=== PATIENT | male | born 1940 | race Caucasian/White ===

== ENCOUNTER → 2019-03-11 | Day surgery (SDC) | payer MEDICARE, OTHER ==
[2019-03-09 12:07] LABS: BASOPHILS % 0.5 % (0.0-1.0); EOSINOPHILS # (AUTO) 0.3 (0.0-0.4); HEMATOCRIT 37.4 % (38.2-49.6); HEMOGLOBIN 12.3 g/dL (14.0-18.0); LYMPHOCYTES # (AUTO) 1.2 (1.0-3.2); LYMPHOCYTES % 17.9 % (18.0-39.1); MEAN CORPUSCULAR HEMOGLOBIN 30.1 pg (28-32); MEAN CORPUSCULAR HGB CONC 32.9 g/dL (31-35); MEAN CORPUSCULAR VOLUME 91.7 fL (81-99); MONOCYTES # (AUTO) 0.8 (0.2-0.8); MONOCYTES % 12.5 % (4.4-11.3); NEUTROPHILS # (AUTO) 4.2 (2.1-6.9); NEUTROPHILS % 63.8 % (38.7-80.0); PLATELET COUNT 192 x10e3/uL (140-360); RED BLOOD COUNT 4.08 x10e6/uL (4.3-5.7); RED CELL DISTRIBUTION WIDTH 14.2 % (11.7-14.4)
[~2019-03-11] MED LIST: AMIODARONE; AMIODARONE HCL200 MG PO; AMLODIPINE BESY10 MG PO; ASACOL400 MG PO; ASCORBIC ACID500 MG PO; ASPIRIN81 MG PO; ATORVASTATIN CA20 MG PO; AZATHIOPRINE50 MG PO; AZOR; AZOR 10-40 MG1 EACH PO; BUDESONIDE EC3 MG PO; CALCIUM 500+D1 EACH PO; CARVEDILOL12.5 MG PO; CENTRUM COMPLE1 EACH PO; CETIRIZINE HCL10 MG; CLONIDINE1 EAC2 TD; COLESTIPOL HCL1 GM PO; DILTIAZEM HCL60 MG PO; DIOVAN HCT 3201 EACH PO; DRISDOL50000 UNIT PO; FENTANYL CITRATE/PF 100MCG/2 ML INJ ONE; FERROUS SULFAT325 MG PO; FLOMAX0.4 MG; FOLIC ACID1 MG PO; GABAPENTIN100 MG PO; GLUCOSAMINE H1500 MG PO; HYDROXYZINE HCL25 MG PO; IOPAMIDOL 200 MG/ML 20 ML VIAL IT ONE; ISOSORBIDE; LIALDA1.2 GM PO; LIDOCAINE HCL 1% 30ML-PF VIAL ONE; LIDOCAINE HCL 2% LOCAL INJ 5 ML SDV VIAL INJ ONE; LISINOPRIL-HCT1 EACH PO; LOMOTIL TABLET1 EACH PO; LOPERAMIDE PO; LOPERAMIDE2 MG PO; LORAZEPAM0.5 MG PO; MEGESTROL400 MG/10 PO; METOPROLOL TART25 MG PO; METOPROLOL TART50 MG PO; MIDAZOLAM HCL 2 MG/2 ML VIAL ONE; MULTAQ400 MG PO; MULTI-VITAMIN1 EACH; OCTREOTIDE SQ; OMEPRAZOLE40 MG PO; OS-CAL 500+D T1 EACH PO; PEPCID40 MG PO; PHOSPHORUS PO; POT PO; PREDNISONE5 MG PO; PROPOFOL IV EMULSION 10 MG/ML 20 ML VIAL ONE; PROTONIX PO; QUESTRAN PACKET4 GM PO; REGLAN10 MG PO; SIMETHICONE125 MG PO; SIMVASTATIN40 MG PO; SOD PO; SPIRONOLACTONE25 MG PO; SPIRONOLACTONE50 MG PO; TAMSULOSIN; THIAMINE HCL100 MG PO; TRAZODONE HCL50 MG PO; TRIAMCINOLONE ACET 40 MG/ML VIAL ONE; ULTRAM 50MG50 MG PO; VITAMIN E1000 UNI1 PO; XANAX0.5 MG PO; XARELTO20 MG PO; Z.0.PLAVIX75 MG PO; [UNRECOGNIZED DRUG - OTHER]; [UNRECOGNIZED DRUG - OTHER] SQ
--- OUTSIDE RECORDS SUMMARY | 2019-03-11 05:43 | XMS REPORT ---
Author [facility] Address Unknown Phone Unavailable Care Team Providers Care Sergeant Of Officers Name Role Phone Unavailable Unavailable Payers Payer Name Policy Type Policy Number Effective Date Expiration Date Problems This patient has no known problems. Allergies, Adverse Reactions, Alerts Allergy Name Allergy Type Status Severity Reaction(s) Onset Date Inactive Date Treating Clinician Comments codeine DA Active SV 2018-03-12 00:00:00 No Known Drug Intolerances DA Active U 2008-11-07 00:00:00 No Known Contrast Allergies DA Active U 2007-05-25 00:00:00 No Known Drug Allergies DA Active U 2007-05-25 00:00:00 No Known Food Allergies DA Active U 2007-05-25 00:00:00 No Known Other Allergies DA Active U 2007-05-25 00:00:00 Medications This patient has no known medications. Results Test Description Test Time Test Comments Text Results Atomic Results Result Comments - XR CHEST 2 V 2018-12-14 15:42:00 FAX: Oziel Turner [phone] [place]: St: PRE Name: SANTOSH GARCIA [facility] : 1940 Age/S: 78/M [address] Unit #: [id number] Loc: [place] [address] Phys: Oziel Saleh MD Acct: [id number] Dis Date: [place] [facility] [place] #: [phone] Exam Date: 12/14/2018 1521 FAX #: [phone] Reason: CAD EXAMS: CPT CODE: [id number] XR CHEST 2 V 08902 CLINICAL HISTORY: CAD COMPARISON: May 25, 2007 PA and lateral films of the chest demonstrate fecal clips overlying right and l eft hemithorax. Heart size is normal. There is mild tortuosity of thoracic aorta. Lung michele are clear without any evidence of pneumonia or congestive failure. Calcified granuloma at the right lung base as well as at left costophrenic angle are present, unchanged since previous examination. Linear opacity at the left lung base compatible with scarring is present. Regional skeletal structures demonstrate no acute abnormality. IMPRESSION: No evidence of pneumonia or congestive failure is seen. at 9360 Reported and signed by: Randell Silva M.D. CC: Oziel Saleh MD Technologist: RT Liset(R) Trnscrd Date/Time/By: 12/14/2018 (0853) : By: Shania Orig Print D/T: S: 12/14/2018 (4445) PAGE 1 Signed Report PROTHROMBIN TIME 2018-12-14 15:40:00 PROTHROMBIN TIME PATIENT (test code=PTP) 10.9 SECONDS 9.3-12.9 INTERNATIONAL NORMAL RATIO (test code=INR) 1.0 0.8-1.2 TARGET INR BY INDICATION Indication INR1. Prophylaxis of venous thrombosis 2.0 - 3.0 (orthopedic surgery), Prophylaxis of venous thrombosis (other than high-risk surgery), Treatment of Deep Vein Thrombosis/Pulmonary Embolism, Prevention of systemic embolism - Tissue heart valves, Acute Myocardial Infarction (to prevent systemic embolism), Valvular heart disease, Atrial Fibrillation, Bileaflet mechanical valve in aortic position.2. Mechanical prosthetic valves (high risk), 2.5 - 3.5 Presence of Lupus Anticoagulant or Antiphospholipid Antibodies, Prevention of systemic embolism - Acute Myocardial Infarction (to prevent recurrent infarct). BASIC METABOLIC [id number] 15:35:00* Test Item Value Reference Range Comments SODIUM (test code=NA) 140 mEq/L 134-147 POTASSIUM (test code=K) 4.3 mEq/L 3.4-5.0 CHLORIDE (test code=CL) 99 mEq/L 100-108 CARBON DIOXIDE (test code=CO2) 31 mEq/L 21-33 ANION GAP (test code=GAP) 14 0-20 GLUCOSE (test code=GLU) 84 mg/dL 70-110 BLOOD UREA NITROGEN (test code=BUN) 13 mg/dL 7-18 GLOMERULAR FILTRATION RATE (test code=GFR) 93.7 70-80 Units of measure=ml/min/1.73 m2 CREATININE (test code=CREAT) 0.8 mg/dL 0.6-1.3 CALCIUM (test code=CA) 9.2 mg/dL 8.0-10.5 CBC W/AUTO [id number] 15:02:00* Test Item Value Reference Range Comments WHITE BLOOD CELL (test code=WBC) 6.93 x10 3/uL 4.5-11.0 RED BLOOD CELL (test code=RBC) 3.90 x10 6/uL 4.00-5.60 HEMOGLOBIN (test code=HGB) 11.8 g/dL 12.5-16.9 HEMATOCRIT (test code=HCT) 35.7 % 37.5-50.7 MEAN CELL VOLUME (test code=MCV) 91.5 fL 81.0-99.0 MEAN CELL HGB (test code=MCH) 30.3 pg 27.0-33.0 MEAN CELL HGB CONCETRATION (test code=MCHC) 33.1 g/dL 33.0-37.0 RED CELL DISTRIBUTION WIDTH CV (test code=RDW) 14.2 % 11.5-14.5 RED CELL DISTRIBUTION WIDTH SD (test code=RDW-SD) 47.9 fL 37.0-54.0 PLATELET COUNT (test code=PLT) 187 x10 3/uL 150-400 MEAN PLATELET VOLUME (test code=MPV) 9.6 fL 7.0-9.0 NEUTROPHIL % (test code=NT%) 59.1 % 56.0-77.0 IMMATURE GRANULOCYTE % (test code=IG%) 0.3 % 0.0-2.0 LYMPHOCYTE % (test code=LY%) 19.9 % 14.0-32.0 MONOCYTE % (test code=MO%) 14.0 % 4.8-9.0 EOSINOPHIL % (test code=EO%) 6.1 % 0.3-3.7 BASOPHIL % (test code=BA%) 0.6 % 0.0-2.0 NUCLEATED RBC % (test code=NRBC%) 0.0 % 0-0 NEUTROPHIL # (test code=NT#) 4.10 x10 3/uL 2.0-7.6 IMMATURE GRANULOCYTE # (test code=IG#) 0.02 x10 3/uL 0.00-0.03 LYMPHOCYTE # (test code=LY#) 1.38 x10 3/uL 1.0-3.8 MONOCYTE # (test code=MO#) 0.97 x10 3/uL 0.1-0.8 EOSINOPHIL # (test code=EO#) 0.42 x10 3/uL 0.0-0.2 BASOPHIL # (test code=BA#) 0.04 x10 3/uL 0.0-0.2 NUCLEATED RBC # (test code=NRBC#) 0.00 x10 3/uL 0.0-0.1 MANUAL DIFF REQUIRED (test code=MDIFF) NO SURGICAL [id number] 15:54:00 RUN DATE: 03/25/18 [facility] PAGE 1 RUN TIME: 2244 Specimen Inqui ry RUN USER: INTERFACE PATIENT: SANTOSH GARCIA ACCT #: [id number] LOC: [id number] U #: [id number] AGE/SX: 77/M ROOM: [facility] RE03/24/18REG DR: Danielito Najera MD : 41 BED: A DIS: 03/25/18 STATUS: DIS IN TLOC: SPEC #: [id number] RECD: 03/24/18 STATUS: SOU REQ #: [id number] BOO: 03/24/[address] [facility] DR: Danielito Najera ENTERED: 03/24/18 SP TYPE: SURG OTHR DR: Kasie [facility] or Family Physician Brandon Lim MDORDERED: LEVEL 4 G/M, DECALCIFICATION COMMENTS: SOURCE: LEFT KNEE CONDYLE CODES: [id number] - SKELETAL SYSTEM [id number] - CARTIL AGINOUS T IY7424 - LEFT KNEE [id number] - BONE DEGENERATIVE SMOOTH COPIES T O: No Primary [place] [address] [place], [place] [id number] [email or web address] Brandon Lim MD [address] [id number] ICD CODES: 715.9 - PROCEDURES: LEVEL 4 G/M (Incomplete) DECALCIFICATION (Incomplete) TISSUES: BONE,NOS ANATOMIC PATHOLOGY DIAGNOSIS BONE AND CARTILAGE, LEFT KNEE CONDYLE, ARTHROPLASTY: - DEGENERATIVE JOINT DISEASE (OSTEOARTHR ITIS). CLINICAL HISTORY/PRE-OP DIAG Left knee osteoarthritis. CONTINUED ON NEXT PAGE RUN DATE: 03/25/18 [facility] PAGE 2 RUN TIME: 2244 Specimen Inquiry RUN USER: INTERFACE SPEC #: [id number] PATIENT: SANTOSH GARCIA #[id number] (Continued) COMMENTS PERMANENT SECTIONS PREPARED AT: [facility] DEPARTMENT OF PATHOLOGY [address] [place] [address], [place] [address] GROSS DESCRIPTION The case is received in one part, labe led with the patient's name "Santosh Garcia"and accession number "[id number]", accompanied by a requisition slip labeled with thesame patient name and accession number. Received in formalin labeled "left knee condyle" are two dome- shaped pieces of bonemeasuring 5 x 3.5 x 0.9 cm and 5.5 x 3.2 x 1 cm. The artic ular surfaces are yellow-pruitt andsmooth. No areas of eburnation are seen. Section ing reveals a pink-yellow cut surface andcartilage thickness ranging from 0.1 cm to 0.3 cm. Data Center Manager sections are submitted incassettes A1-A2 following de calcification. (codey) MICROSCOPIC Sections show cartilage and bone wit h some degenerative changes of the cartilage whichinclude fibrillation, thinning , and chondrocyte cloning. The underlying bone shows mildreactive changes and a predominantly fatty marrow. No malignancy is seen. Signed SIGNATURE ON FILE Odilia Quiroz. 03/25/18 1554 END OF REPORT
--- NOTE | 2019-03-11 07:05 | NUR ---
SPIRITUAL CARE - Pre-Surgery Assessment: Pt in bed. Pt's at bedside. Pt reported supportive attention from family and friends. Intervention: I provided pastoral presence, hospitality, and sympathetic listening. I acquainted pt with availability of structural steel detailer while hospitalized. Outcome: Pt expressed appreciation for visit. No need for follow up indicated at this time. [facility] Spiritual Care Department O: [phone] Pager: [phone] ([phone] number calling from)
[2019-03-11 09:25] VITALS: BP 135/73
== END | disposition home or self-care (01) ==
LOC: OR 05:30
PROVIDERS: ATTEND Physical Medicine & Rehabilitation Pain Medicine
DX: M47.896 Other spondylosis, lumbar region (principal); M47.897 Other spondylosis, lumbosacral region; I25.10 Atherosclerotic heart disease of native coronary artery without angina pectoris; G89.29 Other chronic pain; I10 Essential (primary) hypertension; I48.91 Unspecified atrial fibrillation; Z01.810 Encounter for preprocedural cardiovascular examination; Z01.812 Encounter for preprocedural laboratory examination; Z79.82 Long term (current) use of aspirin; Z95.5 Presence of coronary angioplasty implant and graft; Z85.46 Personal history of malignant neoplasm of prostate
CPT/HCPCS: 36415; 64493; 64494; 64495; 85025; 93005; J2001 ×2; J2250; J2704; J3010; J3301; Q9967; 77003

== ENCOUNTER → 2019-09-30 | Day surgery (SDC) | payer MEDICARE, OTHER ==
[2019-09-27 13:18] LABS: BASOPHILS % 0.3 % (0.0-1.0); EOSINOPHILS % 0.2 % (0.0-6.0); HEMATOCRIT 37.3 % (38.2-49.6); HEMOGLOBIN 12.1 g/dL (14.0-18.0); LYMPHOCYTES # (AUTO) 1.4 (1.0-3.2); LYMPHOCYTES % 15.3 % (18.0-39.1); MEAN CORPUSCULAR HEMOGLOBIN 28.8 pg (28-32); MEAN CORPUSCULAR HGB CONC 32.4 g/dL (31-35); MEAN CORPUSCULAR VOLUME 88.8 fL (81-99); MONOCYTES # (AUTO) 0.8 (0.2-0.8); MONOCYTES % 8.7 % (4.4-11.3); NEUTROPHILS # (AUTO) 7.1 (2.1-6.9); NEUTROPHILS % 75.1 % (38.7-80.0); PLATELET COUNT 234 x10e3/uL (140-360); RED CELL DISTRIBUTION WIDTH 14.8 % (11.7-14.4)
[~2019-09-30] MED LIST changes: +ALENDRONATE SOD10 MG PO; +DEXAMETHASONE SOD PHOS 10 MG/1 ML VIAL ONE; +ELIQUIS2.5 MG PO; +PROTONIX20 MG PO; -TRIAMCINOLONE ACET 40 MG/ML VIAL ONE
[2019-09-30 08:13] VITALS: BP 132/63
--- NOTE | 2019-09-30 09:31 | Diagnostic Imaging Report ---
OR Fluoroscopy: IMPRESSION: Fluoroscopy service provided in the OR. Interpretation not requested. Signed by: Luis Wheatley MD on 09/30/2019 9:28 AM
--- OUTSIDE RECORDS SUMMARY | 2019-09-30 10:32 | XMS REPORT | Summary of Care ---
Author Author [facility] Organization [facility] Address Unknown Phone Unavailable Encounter HQ Yaa(FIN) [id number] Date(s): 12/07/18 - 12/07/18 [facility] [place] [address] [place] [address] [phone] Discharge Disposition: Home or Self Care Attending Physician: Mehnaz Leyva MD Referring Physician: Mehnaz Leyva MD Vital Signs No data available for this section Problem List Condition Effective Dates Status Health Status Informan t Atrial Active fibrillation(Confirm ed) Crohn Active disease(Confirmed) Hypertension(Confirm Active ed) Pancreatitis(Confirm Resolved ed) Prostate Resolved cancer(Confirmed) Allergies, Adverse Reactions, Alerts No Known Medication Allergies Medications No data available for this section Results No data available for this section Immunizations No data available for this section Procedures Procedure Date Related Diagnosis Body Site Status Gallbladder operation Completed Social History Social History Type Response Substance Abuse IV drug use: No. Sexual Sexually active: No. Jimenez e in Libido: No. Exercise Exercise type: Walking. Employment/School Status: Employed. Alcohol Previous treatment: None. Smoking Status Never smoker; Previous jimenez tment: None; Ready to change: No; Concerns about tobacco use in household: No; Exposure to Tobacco Smoke None; Cigarette Smoking Last 365 Days No; Reg Smoking C essation Counseling No entered on: 12/28/13 Assessment and Plan No data available for this section
--- OUTSIDE RECORDS SUMMARY | 2019-09-30 10:32 | XMS REPORT ---
Author Author [facility] t Organization [facility] Address [address] [place] [address] Phone Unavailable Care Team Providers Care Carbon Brush Maker Name Role Phone Sanket VELASQUEZ Attphys Unavailable Mehnaz Leyva Attphys HematpoRangel turk Attphys Hematpour, Khtere Admphys Payers Payer Name Policy Type Policy Number Effective Date Expiration Date S ource Problems Condition Name Condition Details Condition Category Status Onset Date Resolution Date Last Treatment Date Treating Clinician Comments Source K51.00 - ULCERATIVE (CHRONIC) PANCOLITI K51.00 - ULCERATIVE (CHRONIC) PANCOLITI Active 12/01/2018 [facility] [place] [facility] Diagnosis Active 2018-12-01 00:01:00 2018-12-07 08:37:00 [facility] [place] INCREASED HR INCR EASED HR Active 12/28/2013 [facility] Diagnosis Active 2013-12-28 00:00:00 2013-12-28 13:39:00 [facility] A-FLUTTER/HYPOTENSIVE A-FL UTTER/HYPOTENSIVE Active 12/28/2013 [facility] Diagnosis Active 2013-12-28 00:00:00 2013-12-29 10:49:[address] [facility] [address] Atrial fibrillation (disorder) Atrial fibrillation (disorder) Active Problem 12/09/2018 [facility], [facility] [place] Problem Active 2018-12-09 23:14:55 [facility], [facility] [place] Crohn's disease (disorder) 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 Problem 12/09/2018 [facility], [facility] [place] Problem Active 2018-12-09 23:14:55 [facility], [facility] [place] Hypertensive disorder, systemic arterial (disorder) Hypertensive disorder, systemic arterial (disorder) Active Problem 12/09/2018 [facility], [facility] [place] Problem Active 2018-12-09 23:14:55 [facility], [facility] [place] Pancreatitis (disorder) Panc reatitis (disorder) Resolved Problem 12/09/2018 [facility], [facility] [place] Problem Resolved 2018-12-09 23:14:55 [facility], [facility] [place] Malignant tumor of prostate (disorder) Malignant tumor of prostate (disorder) Resolved Problem 12/09/2018 [facility], [facility] [place] Problem Resolved 2018-12-09 23:14:55 [facility], [facility] [place] ATRIAL FLUTTER ATRI AL FLUTTER Active [facility] Diagnosis Active 2013-12-29 10:49:00 [facility] Allergies, Adverse Reactions, Alerts Allergy Name Allergy Type Status Severity Reaction(s) Onset Date Inacti ve Date Treating Clinician Comments Source codeine DA Active SV 2018-03-12 00:00:00 [facility] No Known Drug Intolerances DA Active U 2008-11-07 00:00:0 0 [facility] No Known Contrast Allergies DA Active U 2007-05-25 00:00: 00 [facility] No Known Drug Allergies DA Active U 2007-05-25 00:00:00 [facility] No Known Food Allergies DA Active U 2007-05-25 00:00:00 [facility] No Known Other Allergies DA Active U 2007-05-25 00:00:00 [facility] No Known Medication Allergies No Known Medication Allergies Active [facility] Social History Social Habit Start Date Stop Date Quantity Comments Source Social History 2013-12-28 19:58:38 2013-12-28 19:58:38 [facility] Medications Ordered Medication Name Filled Medication Name Start Date Stop Da te Current Medication? Ordering Clinician Indication Dosage Frequency Signature (SIG) Comments Components Source dronedarone 400 mg oral tablet 2013-12-30 15:54:00 Yes 400 mg = 1 tab, PO, Q12H, # 60 tab, 3 Refill(s) [facility] Xarelto 2013-12-29 22:00:00 No Notes: (Same as: Xarelto) Administer with food [facility] Magnesium Sulfate 2013-12-29 21:00:00 No 2 gm, 50 mL, Route: IVPB, Drug form: INJ, Q2H, Dosing Weight 84.091, kg, Total dose = 4 gm, Start date: 12/29/13 16:00:00, Duration: 2 doses or times, Stop date: 12/29/13 18:00:00 [facility] vitamin E 2013-12-29 16:30:00 No 400 unit, 1 cap, Route: PO, Drug form: CAP, Daily, Dosing Weight 84.091, kg, Start date: 12/29/13 11:30:00, Duration: 30 day, Stop date: 01/28/14 9:00:00 [facility] Magnesium Oxide 2013-12-29 14:38:00 No Notes: (Same as: Mag-Ox 400) Magnesium oxide 099ou=563lm elemental magnesium Dose=____mg magnesium oxide (___mg elemental magnesium) [facility] Amlodipine 10 MG / Olmesartan medoxomil 40 MG Oral Tablet [A zor 40] 2013-12-29 14:00:00 No 1 tab, Route: PO, Drug Form: TAB, Dosing Weight 84.091, kg, Daily, Start date: 12/29/13 9:00:00, Duration: 30 day, Stop date: 01/27/14 9:00:[address] [facility] Benicar 2013-12-29 14:00:00 No 40 mg, 2 tab, Route: PO, Drug form: TAB, Daily, Start date: 12/29/13 9:00:00, Duration: 30 day, Stop date: 01/27/14 9:00:[address] [facility] Norvasc 2013-12-29 14:00:00 No Notes: (Same as: Norvasc) [facility] Vitamin E 2013-12-29 14:00:00 No 400 unit, 1 cap, Route: PO, Drug form: CAP, Daily, Dosing Weight 84.091, kg, Start date: 12/29/13 9:00:00, Duration: 30 day, Stop date: 01/27/14 9:00:00 [facility] Xarelto 2013-12-29 14:00:00 No 10 mg, Route: PO, Daily, Dosing Weight 84.091, kg, Start date: 12/29/13 9:00:00, Duration: 30 day, Stop date: 01/27/14 9:00:00 [facility] Prednisone 2013-12-29 14:00:00 No Notes: Ta ke with food. [facility] potassium phosphate 155 MG / Sodium Phos phate, Dibasic 852 MG / Sodium Phosphate, Monobasic 130 MG Oral Tablet [K-Phos Neutral] 201 08-18-19 14:00:00 No Notes: Non-Fomrulary Drug. (Same as: K-Phos) [facility] Imodium A-D 2013-12-29 02:11:00 No Notes: S madeline as Imodium [facility] Multaq 2013-12-29 02:00:00 No Notes: Same a s: Multaq [facility] Magnesium Oxide 2013-12-29 00:38:00 No Notes: (Same as: Mag-Ox 400) Magnesium oxide 240gu=044uz elemental magnesium Dose=____mg magnesium oxide (___mg elemental magnesium) [facility] Potassium Chloride 2013-12-29 00:37:00 No Notes: (Same as: K-Dur 20) "Do Not Crush" With food and full glass of water [facility] Hydralazine 2013-12-28 22:00:00 No Notes: (Same as: Apresoline) May interfere w/enteral feedings Take With Food. [facility] Multaq 2013-12-28 22:00:00 No 400 mg, Route: PO, BID, Dosing Weight 84.091, kg, Start date: 12/28/13 17:00:00, Duration: 30 day, Stop date: 01/27/14 9:00:00 [facility] Imodium Multi-Symptom Relief 2013-12-28 19:00:00 Yes OTC 1 tablet, PO, Daily, as needed for loose stool [facility] potassium phosphate 155 MG / Sodium Phos phate, Dibasic 852 MG / Sodium Phosphate, Monobasic 130 MG Oral Tablet [K-Phos Neutral] 201 08-17-18 18:59:00 Yes 1 tablet, PO, TID [facility] predniSONE 20 mg oral tablet 2013-12-28 18:59:00 Yes 20 mg = 1 tab, PO, Daily [facility] Vitamin E 2013-12-28 18:58:00 Yes OTC 1 tabl et, PO, Daily [facility] Amlodipine 10 MG / Olmesartan medoxomil 40 MG Oral Tablet [A zor ] 2013-12-28 18:57:00 Yes 1 tab, PO, Daily [facility] metoprolol extended release 2013-12-28 17:57:00 No Notes: (Same as: Toprol XL) Do Not Crush [facility] diltiazem 12 hour extended release 2013-12-28 17:01:00 No 60 mg, Route: PO, ONCE, Dosing Weight 85.455, kg, Priority: NOW, Start date: 12/28/13 12:01:00, Stop date: 12/28/13 12:01:00 [facility] Diltiazem 2013-12-28 17:00:00 No 20 mg, Route: IVP, ONCE, Dosing Weight 85.455, kg, Priority: STAT, Start date: 12/28/13 12:00:00, Stop date: 12/28/13 12:00:00 [facility] Ondansetron 2013-12-28 16:56:00 No 4 mg, Route: IVP, Drug form: INJ, ONCE, Dosing Weight 85.455, kg, Priority: STAT, Start date: 12/28/13 11:56:00, Stop date: 12/28/13 11:56:00 [facility] Propofol 2013-12-28 16:56:00 No 20 mg, Route: IVP, ONCE, Dosing Weight 85.455, kg, Priority: STAT, Start date: 12/28/13 11:56:00, Stop date: 12/28/13 11:56:00 [facility] Fentanyl 2013-12-28 16:56:00 No Notes: (Same as: Sublimaze) Preservative free. [facility] NS 1,000 mL 2013-12-28 16:56:00 No Special Instructions: Bolus Dose [facility] Sodium Chloride 0.154 MEQ/ML Injectable Solution 2013-12-28 16:3 1:00 No 1,000 mL, 1,000 ml/hr, Infus e Over: 1 hr, Route: IV, ONCE, Priority: STAT, Dosing Weight 85.455 kg, Start date: 12/28/13 11:31:00, Duration: 1 doses or times, Stop date: 12/28/13 11:31:00 [facility] Xarelto 2013-12-28 16:24:00 Yes 10 mg, PO, D aily, 0 Refill(s) [facility] Amlodipine 10 MG / Olmesartan medoxomil 20 MG Oral Tablet [A zor 02/28] 2013-12-28 16:24:00 No 0 Refill(s) [facility] Lomotil 2013-12-28 16:24:00 Yes 1 tab, PO, QID, Diarrhea, 0 Refill(s) [facility] Plavix 2013-12-28 16:24:00 Yes 75 mg, PO, Da eric, 0 Refill(s) [facility] Hydralazine 2013-12-28 16:24:00 No 25 mg, P O, BID, 0 Refill(s) [facility] Vital Signs Vital Name Observation Time Observation Value Comments Source Diastolic (mm Hg) 2013-12-30 16:29:00 [facility] Systolic (mm Hg) 2013-12-30 16:29:00 [facility] Respitory Rate 2013-12-30 16:29:00 [facility] Systolic (mm Hg) 2013-12-30 14:29:00 [facility] Diastolic (mm Hg) 2013-12-30 14:29:00 [facility] Respitory Rate 2013-12-30 14:29:00 [facility] Temperature Oral (F) 2013-12-30 13:21:00 96.8 F [facility] Respitory Rate 2013-12-30 13:21:00 [facility] Systolic (mm Hg) 2013-12-30 12:30:00 [facility] Diastolic (mm Hg) 2013-12-30 12:30:00 [facility] Temperature Oral (F) 2013-12-30 04:16:00 96.8 F [facility] Temperature Oral (F) 2013-12-29 20:50:00 96.9 F [facility] Weight 2013-12-28 19:50:00 [facility] Height 2013-12-28 19:50:00 170.18 cm [facility] BMI Calculated 2013-12-28 19:50:00 [facility] Height 2013-12-28 19:27:00 187.96 cm [facility] BMI Calculated 2013-12-28 19:27:00 [facility] Weight 2013-12-28 19:27:00 [facility] Heart Rate 2013-12-28 16:25:00 [facility] Weight 2013-12-28 16:14:00 [facility] Height 2013-12-28 16:14:00 185.42 cm [facility] BMI Calculated 2013-12-28 16:14:00 [facility] Heart Rate 2013-12-28 16:14:00 [facility] Procedures Procedure Date / Time Performed Performing Clinician Sourc e Gallbladder [facility] [place] [place] En[facility]ters Start Date/Time End Date/Time Encounter Type Admission Type [facility] Facility Care Department Encounter ID Source 2018-12-07 13:28:00 2018-12-08 04:59:00 Outpt Diag Services [facility] [place] [id number] [facility] [place] 2018-12-07 08:28:00 2018-12-07 23:59:00 Outpatient Mehnaz Leyva KEREN MHHOIP [id number] 2013-12-28 15:56:00 2013-12-30 18:20:00 Inpatient [facility] [id number] [facility] 2013-12-28 10:56:00 2013-12-30 13:20:00 Outpatient Hematpo Rangel turk [facility] [id number] Results Test Description Test Time Test Comments Results Result Comments Source FLUORO ASSIST NEURO/PAIN CASES 2019-09-30 09:27:00 [place] [address] Patient Name: SANTOSH GARCIA MR #: [id number] : 1940 Age/Sex: 79/M Req #: [id number] Adm Physician: Ordered by: JESSE VELASQUEZ MD Report #: [id number] Location: OR Room/Bed: Procedure: [id number] IR/FLUORO ASSIST NEURO/PAIN CASES Exam Date: 09/30/19 Exam Time: 711 REPORT STATUS: Signed OR Fluoroscopy: IMPRESSION: Fluoroscopy service provided in the OR. Interpretation not requested. Signed by: Luis Mishra MD on 09/30/2019 9:28 AM Dictated By: LUIS MISHRA MD 7 Transcribed By: AMEYA on 09/30/19927 COPY TO: JESSE VELASQUEZ MD - XR CHEST 2 V 2018-12-14 15:42:00 FAX: Oziel Turner [phone] [place]: St: PRE -- Name: SANTOSH GARCIA [facility] : 1940 Age/S: 78/M [address] [place] [address] Unit #: [id number] Loc: [place] [address] Phys: Oziel Saleh MD Acct: [id number] Dis Date: Status: PRE SDC PHONE #: [phone] Exam Date: 12/14/2018 1521 FAX #: [phone] Reason: CAD EXAMS: CPT CODE: [id number] XR CHEST 2 V 26350 CLINICAL HISTORY: CAD COMPARISON: May 25, 2007 [...] pneumonia or congestive failure is seen. at 3159 Reported and signed by: Randell Silva M.D. CC: Oziel Saleh MD Technologist: RT Liset(R) Trnscrd Date/Time/By: 12/14/2018 (1732) : By: Shania Orig Print D/T: S: 12/14/2018 (9090) PAGE 1 Signed Report PROTHROMBIN TIME 2018-12-14 15:40:00 Test Item PROTHROMBIN TIME PATIENT (test code = PTP) 10.9 SECONDS 9.3-12.9 N INTERNATIONAL NORMAL RATIO (test code = INR) 1.0 0.8-1.2 N TARGET INR BY INDICATION Indication INR1. Prophylaxis [...] Infarction (to prevent recurrent infarct). BASIC METABOLIC [id number] 15:35:00* Test Item Value Reference Range Interpretation Comments SODIUM (test code = NA) 140 mEq/L 134-147 N POTASSIUM (test code = K) 4.3 mEq/L 3.4-5.0 N CHLORIDE (test code = CL) 99 mEq/L 100-108 L CARBON DIOXIDE (test code = CO2) 31 mEq/L 21-33 N ANION GAP (test code = GAP) 14 0-20 N GLUCOSE (test code = GLU) 84 mg/dL 70-110 N BLOOD UREA NITROGEN (test code = BUN) 13 mg/dL 7-18 N GLOMERULAR FILTRATION RATE (test code = GFR) 93.7 70-80 H Units of measure = ml/min/1.73 m2 CREATININE (test code = CREAT) 0.8 mg/dL 0.6-1.3 N CALCIUM (test code = CA) 9.2 mg/dL 8.0-10.5 N CBC W/AUTO [id number] 15:02:00* Test Item Value Reference Range Interpretation Comments WHITE BLOOD CELL (test code = WBC) 6.93 x10 3/uL 4.5-11.0 N RED BLOOD CELL (test code = RBC) 3.90 x10 6/uL 4.00-5.60 L HEMOGLOBIN (test code = HGB) 11.8 g/dL 12.5-16.9 L HEMATOCRIT (test code = HCT) 35.7 % 37.5-50.7 L MEAN CELL VOLUME (test code = MCV) 91.5 fL 81.0-99.0 N MEAN CELL HGB (test code = MCH) 30.3 pg 27.0-33.0 N MEAN CELL HGB CONCETRATION (test code = MCHC) 33.1 g/dL 33.0-37. 0 N RED CELL DISTRIBUTION WIDTH CV (test code = RDW) 14.2 % 11.5- 14.5 N RED CELL DISTRIBUTION WIDTH SD (test code = RDW-SD) 47.9 fL 37 .0-54.0 N PLATELET COUNT (test code = PLT) 187 x10 3/uL 150-400 N MEAN PLATELET VOLUME (test code = MPV) 9.6 fL 7.0-9.0 H NEUTROPHIL % (test code = NT%) 59.1 % 56.0-77.0 N IMMATURE GRANULOCYTE % (test code = IG%) 0.3 % 0.0-2.0 N LYMPHOCYTE % (test code = LY%) 19.9 % 14.0-32.0 N MONOCYTE % (test code = MO%) 14.0 % 4.8-9.0 H EOSINOPHIL % (test code = EO%) 6.1 % 0.3-3.7 H BASOPHIL % (test code = BA%) 0.6 % 0.0-2.0 N NUCLEATED RBC % (test code = NRBC%) 0.0 % 0-0 N NEUTROPHIL # (test code = NT#) 4.10 x10 3/uL 2.0-7.6 N IMMATURE GRANULOCYTE # (test code = IG#) 0.02 x10 3/uL 0.00-0.03 N LYMPHOCYTE # (test code = LY#) 1.38 x10 3/uL 1.0-3.8 N MONOCYTE # (test code = MO#) 0.97 x10 3/uL 0.1-0.8 H EOSINOPHIL # (test code = EO#) 0.42 x10 3/uL 0.0-0.2 H BASOPHIL # (test code = BA#) 0.04 x10 3/uL 0.0-0.2 N NUCLEATED RBC # (test code = NRBC#) 0.00 x10 3/uL 0.0-0.1 N MANUAL DIFF REQUIRED (test code = MDIFF) NO SURGICAL [id number] 15:54:00 RUN DATE: 03/25/18 [facility] PAGE 1 RUN TIME: 4 Specimen Inqui ry RUN USER: INTERFACE PATIENT: SANTOSH GARCIA ACCT #: [id number] LOC: WaltCP2 U #: [id number] AGE/SX: 77/M ROOM: [facility] RE03/24/18REG DR: Danielito Najera MD : 42 BED: A DIS: 03/25/18 STATUS: DIS IN TLOC: SPEC #: [id number] RECD: 03/24/18 STATUS: KEN[place] RE #: [id number] BOO: 03/24/[address] [facility] DR: Danielito Najera ENTERED: 03/24/18 SP TYPE: SURG OTHR DR: [facility] or Family Physician Brandon Lim MDORDERED: LEVEL 4 G/M, DECALCIFICATION COMMENTS: SOURCE: LEFT KNEE CONDYLE CODES: L51196 - SKELETAL SYSTEM V2I097 - CARTIL AGINOUS T WP0750 - LEFT KNEE [id number] - BONE DEGENERATIVE SMOOTH COPIES T O: No Primary [place] [address] [place], [place] [address] [email or web address] Brandon Lim MD [address] [address] ICD CODES: 715.9 - PROCEDURES: LEVEL 4 G/M (Incomplete) DECALCIFICATION (Incomplete) TISSUES: BONE,NOS ANATOMIC PATHOLOGY DIAGNOSIS BONE AND CARTILAGE, LEFT KNEE CONDYLE, ARTHROPLASTY: - DEGENERATIVE JOINT DISEASE (OSTEOARTHR ITIS). CLINICAL HISTORY/PRE-OP DIAG Left knee osteoarthritis. CONTINUED ON NEXT PAGE RUN DATE: 03/25/18 [facility] PAGE 2 RUN TIME: 2243 Specimen Inquiry RUN USER: INTERFACE SPEC #: [id number] PATIENT: SANTOSH GARCIA #[id number] (Continued) COMMENTS PERMANENT SECTIONS PREPARED AT: [facility] DEPARTMENT OF PATHOLOGY [address] [place] [address] GROSS DESCRIPTION The case is received in one part, jonathane led with the patient's name "Santosh Garcia"and accession number "[id number]", accompanied by a requisition slip labeled with [...] ranging from 0.1 cm to 0.3 cm. [employer] sections are submitted incassettes A1-A2 following de drew. (codey) MICROSCOPIC Sections show cartilage and bone wit h some degenerative changes of the cartilage whichinclude fibrillation, thinning , and chondrocyte cloning. The underlying bone shows mildreactive changes and a predominantly fatty marrow. No malignancy is seen. Signed SIGNATURE ON FILE Odilia Quiroz. 03/25/18 1554 END OF REPORT CHEM [id number] 11:00:002.[address] [place], [place] [address]CHEM [id number] 11:00:00 2.5[facility]OiwjafGKZXPGQPPZTU2702-94-19 11:00:[address] [place], [place] [address]EnhzbbRVSKKLOLKYAV6080-56-62 11:00:92611ME[facility] MarshallELECTROLYTES 2013-12-30 11:00:004.[address] [place], [place] [address]SjyqnvRVWZSSJMCOYX9353-67-54 11:00:0013[facility] MarshallBmezitULSLVYWDJOGD0781-97-38 11:00:000.7[facility] WTFUJXGQUOQF9552-76-52 11:00:0079[facility] MarshallWdeecrWUJCVCYNAABX6335-65-49 11:00:0094[facility] MarshallBdsruwWTNLUSFQBCVS3368-74-33 11:00:[address] [place], [place] [address]ItwawlSDCXONISNJDL7017-01-50 11:00:65340XE[facility] QCVRNDIVNGVA9103-47-08 11:00:0024[facility] MarshallVoanbnDTOOZDNHDR9274-38-59 11:00:004.01[facility] MarshallUwfynpDRGEWLMBGP9907-18-08 11:00:007.8[facility] MarshallHiciqgJWEZYKNTFR5042-85-83 11:00:[address] [place], [place] [address]HEMATOLOGY 2013-12-30 11:00:[address] [place], [place] [address]BmcshuULBAEXLPTO3818-79-90 11:00:0033.3 [facility] MarshallQcmsulFWMNCQMZTM2553-49-18 11:00:[address] [place] [address] GWZKJVXRME6839-16-80 11:00:0036.9[facility] MarshallJfzhnqGMKFMNFMKU1468-41-69 11:00:00* Test Item Value Reference Range Interpretation Comments MCH (test code = MCH) 30.6 pg 27.0-31.0 [facility] MarshallIortmbZONQZGYVWM6690-62-69 11:00:[address] [place] [address] VKDACRQZNW9669-73-65 11:00:98073ZHCH[facility] – MarshallXbxoxcGKXTJSVWBM3904-84-94 11:00:001.54[facility] MarshallBywovwQDQHNXZHUI5386-20-04 11:00:00* Test Item Value Reference Range Interpretation Comments PT (test code = PT) 18.3 s 12.0-14.7 [facility] MarshallPezdzjMYFYVOBEPW0243-84-71 11:00:00* Test Item Value Reference Range Interpretation Comments PTT (test code = PTT) 31.5 s 22.9-35.8 [facility] MarshallIgsintDQQMDRAPDP1930-11-31 11:00:0056.4[facility] KMPELLNRQA7852-88-39 11:00:0033.5[facility] MarshallSnorxiXLRKOMBRKU9543-01-95 11:00:[address] [place], [place] [address]LvrnzsLIYLQFBBTJ6968-92-22 11:00:[address] [place], [place] [address]BblduwOWTGPGFZPB9759-60-20 11:00:004[address] [place], [place] [address]HEMATOLOGY 2013-12-30 11:00:002.[address] [place], [place] [address]RbxswuSQSDFFFBIJ0116-26-08 11:00:[address] [place], [place] [address]YfsnbmDNZXASZSTR9868-82-67 11:00:[address] [place] [address] BKWRGGXGSQ2142-56-34 11:00:000.[address] [place], [place] [address]PARATHYROID PROFILE 2013-12-30 11:00:001.02[facility]ATHY[facility] FAURECP9860-93-07 11:00:001.00[facility] MarshallCHE[facility] FNHKG6561-85-01 08:46:0089[facility] BHLQU0343-36-45 08:46:0016[facility] PANEL 2013-12-29 08:46:000.8[facility] XWDJP9445-48-17 08:46:0075[facility] SIFCE5913-65-68 08:46:0012.9[facility] TBLCC8343-76-43 08:46:0025[facility]CHE[facility] HMAES4619-31-74 08:46:00 3.9[facility] CZDWG2613-63-69 08:46:007.[address] [place], [place] [address]CHEM NSNSN4185-58-16 08:46:71091ENCH[facility] MarshallCHEM PANEL 2013-12-29 08:46:41202RJCHRIST[facility] – MarshallCHEM EGSJC6316-14-52 08:46:002.0[facility] ZPUDD3909-04-36 08:46:001.4[facility] ZVLAUNNKPN4175-80-70 08:46:00* Test Item Value Reference Range Interpretation Comments MCH (test code = MCH) 30.7 pg 27.0-31.0 [facility] MarshallAexhjrAOZERFFHLI5127-36-89 08:46:37566TQCH[facility] SEXJYCEZOW0669-99-72 08:46:0033.4[facility] MarshallFexneoEECSNQRHWU6254-72-14 08:46:[address] [place], [place] [address]QxlbheEZFZZLGDAN8921-78-80 08:46:0031.0[facility] MarshallCfvofbSSQAZCETMJ1187-53-78 08:46:0091.9[facility] 2013-12-29 08:46:008.9[facility] MarshallGhehcnXFCEUPGQZO4444-80-93 08:46:[address] [place], [place] [address]IrrslsQMXRDBJTMA8513-81-74 08:46:003.37[facility] EVVJQVJYNM1521-11-72 08:46:[address] [place], [place] [address]RwpmuuOLXXVWDVZM6651-80-76 08:46:00* Test Item Value Reference Range Interpretation Comments PTT (test code = PTT) 28.9 s 22.9-35.8 [facility] MarshallMikzszWZTVSADBOJ6691-27-17 08:46:001.28[facility] SMBZIVNWBU9644-13-59 08:46:00* Test Item Value Reference Range Interpretation Comments PT (test code = PT) 15.8 s 12.0-14.7 [facility] MarshallJtbqhqBWLZVRQQUW7862-38-30 08:46:0035.6[facility] JEDSVBKTWL8619-93-77 08:46:009.7[facility] MarshallQlmogrCXFZVCDJCW0783-50-87 08:46:001.7[facility] MarshallPfrjybKFOERDRHOP4621-42-98 08:46:000.6M[facility] CenterLdhlgkPKIPQLTDVI6303-21-80 08:46:003.7[facility] 2013-12-29 08:46:000.1M[facility] CenterZwqalgBPBLBJZVJD5224-30-72 08:46:000.[address] [place], [place] [address]QklqfdGXOYQTOWNP8094-91-05 08:46:002.5[facility] FPBRLMJJDH4723-24-62 08:46:0052.4[facility] MarshallPARATHYROID PROFILE 2013-12-29 08:46:001.04[facility] MarshallPARATHYROID WURDMLQ6354-91-64 08:46:001.03[facility] OMHZZ9912-07-47 05:00:00Not Indicated *NA*(12/29/13 12:00 AM)[facility] [id number] 05:00:00Negative (12/29/13 12:00 AM)[facility] STOOL 2013-12-29 05:00:00Negative (12/29/13 12:00 AM)[facility] QQRQB0228-85-98 05:00:000.2[facility] CenterUR[facility] JTRWY1875-82-53 05:00:00Negative *NA*(12/29/13 12:00 AM)[facility] STOOL 2013-12-29 05:00:00Negative (12/29/13 12:00 AM)[facility] ZGAGD4623-16-72 05:00:00* Test Item Value Reference Range Interpretation Comments UA Spec Grav (test code = UA Spec Grav) 1.010 1 [facility] [id number] 05:00:00Clear (12/29/13 12:00 AM)[facility] OSRJJ3583-78-14 05:00:00* Test Item Value Reference Range Interpretation Comments UA pH (test code = UA pH) 6.5 1 5.0-8.0 [facility] KSVLE9539-93-98 05:00:00Yellow *NA*(12/29/13 12:00 AM)[facility]CHE[facility] NVOPD4201-29-70 22:14:0087[facility] Marshall[facility] IKRGM1530-92-71 22:14:0045[facility] MarshallHwghsdJDVFZACZLY1578-67-72 17:09:000.27[facility] MarshallCARDIAC SCHXPSU9916-38-44 16:30:000.18[facility] MarshallCHE[facility] JCRBF2931-58-38 16:30:002.6[facility] CenterCHEM WANSV5355-77-71 16:30:001.6[facility] CenterCHEM ZDFBD9128-57-69 16:30:00 67[facility] MarshallCHE[facility] FEDHA1828-22-69 16:30:82773JPCH[facility] CHEM HEXGK4629-38-42 16:30:0024[facility] MarshallCHE[facility] FIMID4095-65-81 16:30:06612SRCH[facility] – MarshallCHEM VZBCP6928-86-20 16:30:008.5[facility] MarshallCHE[facility] RBBHU3126-06-18 16:30:003.8[facility] MarshallCHE[facility] PANEL 2013-12-28 16:30:52126KUCHRIST[facility] – MarshallCHEM XPLNF5723-86-48 16:30:001.[address] [place], [place] [address]CHEM ZYTQO0865-33-01 16:30:0021[facility] MarshallCHE[facility] VDUMJ7480-51-30 16:30:0012.8[facility] MarshallKzjkmqTKXRXTSDJW5890-00-74 16:30:00 0.9[facility] MarshallKqgglzOYQEQLLYPY5483-21-79 16:30:000.0[facility] MarshallKolrasTGPWWJWFXZ9478-66-97 16:30:000.0[facility] MarshallHEMATOLOGY 2013-12-28 16:30:002.0[facility] MarshallJduyjeSUTDNQGLDO8439-60-52 16:30:000.3M[facility] CenterRzuyqhJUWBOWARVM2834-75-64 16:30:006.9[facility] EJNHAOICEL1248-12-33 16:30:0010.5[facility] MarshallDyfovmKXCMQFGBXY0356-02-77 16:30:[address] [place], [place] [address]KrvieoREAEYTGQZK6851-99-73 16:30:00Normal (12/28/13 11:30 AM)[facility] MarshallHhybryTJEMUIVOAT5130-02-29 16:30:00Normal (12/28/13 11:30 AM)[facility] MarshallGsikscHJWNXVPCCT3910-85-91 16:30:[address] [place], [place] [address]GdmzqkTJABMRKPZG0428-04-54 16:30:[address]77.[address] [place], [place] [address]HEMATOLOGY 2013-12-28 16:30:0013.4[facility] MarshallOtsquoXLSIZPQLVX6181-19-41 16:30:004.26 [facility] MarshallNovfusUSXEFTXMBE0113-77-45 16:30:0013.[address] [place] [address] LJDXJOHSHA2156-62-51 16:30:83266VRCHRIST[facility] – MarshallJytfnoBQTHNRIMYM2343-08-09 16:30:009.[address] [place], [place] [address]YvgyobEIQJXBFSSH5641-26-60 16:30:0013.[address] [place], [place] [address]JavcgaCVNUIPDVWP1089-04-63 16:30:0038.7[facility] 2013-12-28 16:30:0090.8[facility] MarshallUdlwtpKKJYLDYAEL7969-95-64 16:30:00* Test Item Value Reference Range Interpretation Comments MCH (test code = MCH) 31.3 pg 27.0-31.0 [facility] MarshallJlipvoNTZIUSJLBV4928-49-19 16:30:0034.5[facility] YJZMWFSDTM3054-84-05 16:30:00* Test Item Value Reference Range Interpretation Comments PT (test code = PT) 23.6 s 12.0-14.7 [facility] MarshallEhdrhbVUNRMBQEFD1670-59-87 16:30:002.15[facility] TZTKYZBXNL2216-24-48 16:30:00* Test Item Value Reference Range Interpretation Comments PTT (test code = PTT) 40.7 s 22.9-35.8 [facility]
--- OUTSIDE RECORDS SUMMARY | 2019-09-30 10:32 | XMS REPORT | Summary of Care ---
Author Organization Unknown Address Unknown Phone Unavailable Encounter KAMLA Mon(HUNTER) [id number] Date(s): 12/28/13 - 12/30/[address] Discharge Disposition: Home Physician Attending: Rangel Guevara MD Physician Admitting: Rangel Guevara MD Reason for Visit A-FLUTTER/HYPOTENSIVE Vital Signs 1 2 3 Most recent to oldest [Reference Range]: 170.18 cm (12/28/13 2:50 PM) 187.96 cm (12/28/13 2:27 PM) 185.42 cm (12/28/13 11:14 AM) Height 87.443 kg (12/30/13 5:34 AM) Current Weight 96.8 DegF (12/30/13 8:21 AM) 96.8 DegF (12/29/13 11:16 PM) 96.9 DegF (12/29/13 3:50 PM) Temperature Oral [96.4-99.1 DegF] 141 mmHg *HI* (12/30/13 11:29 AM) 146 mmHg *HI* (12/30/13 9:29 AM) 120 mmHg (12/30/13 7:30 AM) Systolic Blood Pressure [90-140 mmHg] 74 mmHg (12/30/13 11:29 AM) 80 mmHg (12/30/13 9:29 AM) 70 mmHg (12/30/13 7:30 AM) Diastolic Blood Pressure [60-90 mmHg] 15 BRMIN (12/30/13 11:29 AM) 20 BRMIN (12/30/13 9:29 AM) 27 BRMIN *HI* (12/30/13 8:21 AM) Respiratory Rate [14-20 BRMIN] 155 bpm *HI* (12/28/13 11:25 AM) 157 bpm *HI* (12/28/13 11:14 AM) Peripheral Pulse Rate [60-100 bpm] 84.091 kg (12/28/13 2:50 PM) 90.597 kg (12/28/13 2:27 PM) 85.455 kg (12/28/13 11:14 AM) Weight 29.04 m2 (12/28/13 2:50 PM) 25.64 m2 (12/28/13 2:27 PM) 24.86 m2 (12/28/13 11:14 AM) Body Mass Index Problem List Condition Effective Dates Status Health Status Informan t Atrial Active fibrillation(Confirm ed) Crohn Active disease(Confirmed) Hypertension(Confirm Active ed) Pancreatitis(Confirm Resolved ed) Prostate Resolved cancer(Confirmed) Allergies, Adverse Reactions, Alerts Substance Reaction Severity Status NKDA Active Medications Tee 10 mg-20 mg oral tablet 0 Refill(s) Start Date: 12/28/13 Stop Date: 12/30/13 Status: Discontinued Tee 10 mg-40 mg oral tablet 1 tab, PO, Daily Start Date: 12/28/13 Status: Ordered Tee 10 mg-40 mg oral tablet 1 tab, Route: PO, Drug Form: TAB, Dosing Weight 84.091, kg, Daily, Start date: 0 12/29/13 9:00:00, Duration: 30 day, Stop date: 01/27/14 9:00:00 Start Date: 12/29/13 Stop Date: 12/28/13 Status: Discontinued Benicar 40 mg, 2 tab, Route: PO, Drug form: TAB, Daily, Start date: 12/29/13 9:00:00, Du ration: 30 day, Stop date: 01/27/14 9:00:00 Start Date: 12/29/13 Stop Date: 12/30/13 Status: Discontinued diltiazem 20 mg, Route: IVP, ONCE, Dosing Weight 85.455, kg, Priority: STAT, Start date: 0 12/28/13 12:00:00, Stop date: 12/28/13 12:00:00 Start Date: 12/28/13 Stop Date: 12/28/13 Status: Discontinued diltiazem 12 hour extended release 60 mg, Route: PO, ONCE, Dosing Weight 85.455, kg, Priority: NOW, Start date: 12:01:00, Stop date: 12/28/13 12:01:00 Start Date: 12/28/13 Stop Date: 12/28/13 Status: Discontinued dronedarone 400 mg oral tablet 400 mg = 1 tab, PO, Q12H, # 60 tab, 3 Refill(s) Start Date: 12/30/13 Status: Ordered fentaNYL 50 microgram, 1 mL, Route: IVP, Drug form: INJ, ONCE, Dosing Weight 85.455, kg, Priority: STAT, Start date: 12/28/13 11:56:00, Stop date: 12/28/13 11:56:00 Notes: (Same as: Sublimaze) Preservative free. Start Date: 12/28/13 Stop Date: 12/28/13 Status: Completed fentaNYL 50 microgram, Route: IVP, ONCE, Dosing Weight 85.455, kg, Priority: STAT, Start date: 12/28/13 11:56:00, Stop date: 12/28/13 11:56:00 Start Date: 12/28/13 Stop Date: 12/28/13 Status: Completed hydrALAZINE 25 mg, 1 tab, Route: PO, Drug form: TAB, BID, Dosing Weight 84.091, kg, Start da te: 12/28/13 17:00:00, Duration: 30 day, Stop date: 01/27/14 9:00:00 Notes: (Same as: Apresoline) May interfere w/enteral feedings Take With Food. Start Date: 12/28/13 Stop Date: 12/30/13 Status: Discontinued hydrALAZINE 25 mg, PO, BID, 0 Refill(s) Start Date: 12/28/13 Stop Date: 12/30/13 Status: Discontinued Imodium A-D 1 mg, 5 mL, Route: PO, Drug form: LIQ, Q8H, Dosing Weight 84.091, kg, PRN as nee ded for loose stool, Priority: NOW, Start date: 12/28/13 21:11:00, Duration: 30 day, Stop date: 01/27/14 21:10:00 Notes: Same as Imodium Start Date: 12/28/13 Stop Date: 12/30/13 Status: Discontinued Imodium Multi-Symptom Relief OTC 1 tablet, PO, Daily, as needed for loose stool Start Date: 12/28/13 Status: Ordered K-Phos Neutral oral tablet 1 tablet, PO, TID Start Date: 12/28/13 Status: Ordered K-Phos Neutral oral tablet 250 mg, 1 tab, Route: PO, Drug Form: TAB, Dosing Weight 84.091, kg, TID, Start d ate: 12/29/13 9:00:00, Duration: 30 day, Stop date: 01/27/14 17:00:00 Notes: Non-Fomrulary Drug.(Same as: K-Phos) Start Date: 12/29/13 Stop Date: 12/30/13 Status: Discontinued Lomotil 1 tab, PO, QID, Diarrhea, 0 Refill(s) Start Date: 12/28/13 Stop Date: 01/01/14 Status: Ordered magnesium oxide 400 mg, 1 tab, Route: PO, Drug form: TAB, ONCE, Dosing Weight 84.091, kg, Start date: 12/28/13 19:38:00, Stop date: 12/28/13 19:38:00 Notes: (Same as: Mag-Ox 400)Magnesium oxide [id number] elemental magnesiumDose= ____mg magnesium oxide (___mg elemental magnesium) Start Date: 12/28/13 Stop Date: 12/28/13 Status: Completed magnesium oxide 800 mg, 2 tab, Route: PO, Drug form: TAB, ONCE, Dosing Weight 84.091, kg, Start date: 12/29/13 9:38:00, Stop date: 12/29/13 9:38:00 Notes: (Same as: Mag-Ox 400)Magnesium oxide [id number] elemental magnesiumDose= ____mg magnesium oxide (___mg elemental magnesium) Start Date: 12/29/13 Stop Date: 12/29/13 Status: Completed magnesium sulfate 2 gm, 50 mL, Route: IVPB, Drug form: INJ, Q2H, Dosing Weight 84.091, kg, Total d ose = 4 gm, Start date: 12/29/13 16:00:00, Duration: 2 doses or times, Stop date : 12/29/13 18:00:00 Start Date: 12/29/13 Stop Date: 12/29/13 Status: Completed metoprolol extended release 25 mg, 1 tab, Route: PO, Drug form: ERTAB, ONCE, Priority: STAT, Start date: 12:57:00, Stop date: 12/28/13 12:57:00 Notes: (Same as: Toprol XL) Do Not Crush Start Date: 12/28/13 Stop Date: 12/28/13 Status: Completed Multaq 400 mg, 1 tab, Route: PO, Drug form: TAB, Q12H, Start date: 12/28/13 21:00:00, D uration: 30 day, Stop date: 01/27/14 9:00:00 Notes: Same as: Multaq Start Date: 12/28/13 Stop Date: 12/30/13 Status: Discontinued Multaq 400 mg, Route: PO, BID, Dosing Weight 84.091, kg, Start date: 12/28/13 17:00:00, Duration: 30 day, Stop date: 01/27/14 9:00:00 Start Date: 12/28/13 Stop Date: 12/28/13 Status: Discontinued Norvasc 10 mg, 1 tab, Route: PO, Drug form: TAB, Daily, Start date: 12/29/13 9:00:00, Du ration: 30 day, Stop date: 01/27/14 9:00:00 Notes: (Same as: Norvasc) Start Date: 12/29/13 Stop Date: 12/30/13 Status: Discontinued NS 1,000 mL 1,000 mL, Rate: 1,000 ml/hr, Infuse over: 1 hr, Route: IV, Dosing Weight 85.455 kg, Total Volume: 1,000, Start date: 12/28/13 11:56:00, Duration: 1 doses or jose l es, Stop date: 12/28/13 12:55:00, Bolus Dose Special Instructions: Bolus Dose Start Date: 12/28/13 Stop Date: 12/28/13 Status: Completed ondansetron 4 mg, Route: IVP, Drug form: INJ, ONCE, Dosing Weight 85.455, kg, Priority: STAT , Start date: 12/28/13 11:56:00, Stop date: 12/28/13 11:56:00 Start Date: 12/28/13 Stop Date: 12/28/13 Status: Completed Plavix 75 mg, PO, Daily, 0 Refill(s) Start Date: 12/28/13 Status: Ordered potassium chloride 20 mEq, 1 tab, Route: PO, Drug form: ERTAB, ONCE, Dosing Weight 84.091, kg, Star t date: 12/28/13 19:37:00, Stop date: 12/28/13 19:37:00 Notes: (Same as: Isaias-Soy 20)"Do Not Crush" With food and full glass of water Start Date: 12/28/13 Stop Date: 12/28/13 Status: Completed predniSONE 20 mg, 1 tab, Route: PO, Drug form: TAB, Daily, Dosing Weight 84.091, kg, Start date: 12/29/13 9:00:00, Duration: 30 day, Stop date: 01/27/14 9:00:00 Notes: Take with food. Start Date: 12/29/13 Stop Date: 12/30/13 Status: Discontinued predniSONE 20 mg oral tablet 20 mg = 1 tab, PO, Daily Start Date: 12/28/13 Status: Ordered propofol 20 mg, Route: IVP, ONCE, Dosing Weight 85.455, kg, Priority: STAT, Start date: 0 12/28/13 11:56:00, Stop date: 12/28/13 11:56:00 Start Date: 12/28/13 Stop Date: 12/28/13 Status: Completed propofol 10 mg, 1 mL, Route: IVP, Drug form: SUSP, ONCE, Dosing Weight 85.455, kg, Priori ty: STAT, Start date: 12/28/13 11:56:00, Stop date: 12/28/13 11:56:00 Notes: If Diprivan - change bottle & tubing every 12 hrPer state nursing law propofol can only be given by a nurse if patient is intubated or being intubated (unless the nurse is a WASHROOM OPERATOR). Same as: Diprivan Start Date: 12/28/13 Stop Date: 12/28/13 Status: Completed Sodium Chloride 0.9% (Bolus) IV 1,000 mL, 1,000 ml/hr, Infuse Over: 1 hr, Route: IV, ONCE, Priority: STAT, Dosin g Weight 85.455 kg, Start date: 12/28/13 11:31:00, Duration: 1 doses or times, S top date: 12/28/13 11:31:00 Start Date: 12/28/13 Stop Date: 12/28/13 Status: Completed vitamin E OTC 1 tablet, PO, Daily Start Date: 12/28/13 Status: Ordered vitamin E 400 unit, 1 cap, Route: PO, Drug form: CAP, Daily, Dosing Weight 84.091, kg, Sta rt date: 12/29/13 11:30:00, Duration: 30 day, Stop date: 01/28/14 9:00:00 Start Date: 12/29/13 Stop Date: 12/30/13 Status: Discontinued vitamin E 400 unit, 1 cap, Route: PO, Drug form: CAP, Daily, Dosing Weight 84.091, kg, Sta rt date: 12/29/13 9:00:00, Duration: 30 day, Stop date: 01/27/14 9:00:00 Start Date: 12/29/13 Stop Date: 12/29/13 Status: Discontinued Xarelto 10 mg, PO, Daily, 0 Refill(s) Start Date: 12/28/13 Status: Ordered Xarelto 20 mg, 1 tab, Route: PO, Drug form: TAB, Daily, Dosing Weight 84.091, kg, Start date: 12/29/13 17:00:00, Duration: 30 day, Stop date: 01/27/14 17:00:00 Notes: (Same as: Xarelto)Administer with food Start Date: 12/29/13 Stop Date: 12/30/13 Status: Discontinued Xarelto 10 mg, Route: PO, Daily, Dosing Weight 84.091, kg, Start date: 12/29/13 9:00:00, Duration: 30 day, Stop date: 01/27/14 9:00:00 Start Date: 12/29/13 Stop Date: 12/28/13 Status: Canceled Results ELECTROLYTES 1 2 3 Most recent to oldest [Reference Range]: 138 mEq/L (12/30/13 6:00 AM) 141 mEq/L (12/29/13 3:46 AM) 135 mEq/L (12/28/13 11:30 AM) Sodium Lvl [135-145 mEq/L] 4.2 mEq/L (12/30/13 6:00 AM) 3.9 mEq/L (12/29/13 3:46 AM) 3.8 mEq/L (12/28/13 11:30 AM) Potassium Lvl [3.5-5.1 mEq/L] 103 mEq/L (12/30/13 6:00 AM) 107 mEq/L (12/29/13 3:46 AM) 102 mEq/L (12/28/13 11:30 AM) Chloride Lvl [95-109 mEq/L] 24 mEq/L (12/30/13 6:00 AM) 25 mEq/L (12/29/13 3:46 AM) 24 mEq/L (12/28/13 11:30 AM) CO2 [24-32 mEq/L] 15.2 mEq/L (12/30/13 6:00 AM) 12.9 mEq/L (12/29/13 3:46 AM) 12.8 mEq/L (12/28/13 11:30 AM) AGAP [10.0-20.0 mEq/L] CHEM PANEL 1 2 3 Most recent to oldest [Reference Range]: 0.7 mg/dL (12/30/13 6:00 AM) 0.8 mg/dL (12/29/13 3:46 AM) 1.1 mg/dL (12/28/13 11:30 AM) Creatinine Lvl [0.5-1.4 mg/dL] 94 mL/min/1.73m2 1 *NA* (12/30/13 6:00 AM) 89 mL/min/1.73m2 2 *NA* (12/29/13 3:46 AM) 67 mL/min/1.73m2 3 *NA* (12/28/13 11:30 AM) eGFR 13 mg/dL (12/30/13 6:00 AM) 16 mg/dL (12/29/13 3:46 AM) 21 mg/dL (12/28/13 11:30 AM) BUN [7-22 mg/dL] 79 mg/dL 4 (12/30/13 6:00 AM) 75 mg/dL 5 (12/29/13 3:46 AM) 153 mg/dL 6 *HI* (12/28/13 11:30 AM) Glucose Lvl [70-99 mg/dL] 8.2 mg/dL *LOW* (12/30/13 6:00 AM) 7.6 mg/dL *LOW* (12/29/13 3:46 AM) 8.5 mg/dL (12/28/13 11:30 AM) Calcium Lvl [8.5-10.5 mg/dL] 2.8 mg/dL (12/30/13 6:00 AM) 2.0 mg/dL *LOW* (12/29/13 3:46 AM) 2.6 mg/dL (12/28/13 11:30 AM) Phosphorus [2.5-4.5 mg/dL] 2.5 mg/dL *HI* (12/30/13 6:00 AM) 1.4 mg/dL *LOW* (12/29/13 3:46 AM) 1.6 mg/dL *LOW* (12/28/13 11:30 AM) Magnesium Lvl [1.8-2.4 mg/dL] 45 unit/L (12/28/13 5:14 PM) ALT [0-65 unit/L] 87 unit/L (12/28/13 5:14 PM) Alk Phos [39-136 unit/L] 1Result Comment: The eGFR is calculated using the CKD-EPI formula. In most young, healthy individuals the eGFR will be >90 mL/min/1.73m2. The eGFR declines with age. An eGFR of 60-89 may be normal in some populations, particularly the elderly, for whom the CKD-EPI formula has not been extensively validated. Use of the eGFR is not recommended in the following populations: Individuals with unstable creatinine concentrations, including patients and those with serious co-morbid conditions. Patients with extremes in muscle mass or diet. The data above are obtained from the National Kidney Disease Education Program ( NKDEP) which additionally recommends that when the eGFR is used in patients with extremes of body mass index for purposes of drug dosing, the eGFR should be mul tiplied by the estimated BMI. 2Result Comment: The eGFR is calculated using the CKD-EPI formula. In most young, healthy individuals the eGFR will be >90 mL/min/1.73m2. The eGFR declines with age. An eGFR of 60-89 may be normal in some populations, particularly the elderly, for whom the CKD-EPI formula has not been extensively validated. Use of the eGFR is not recommended in the following populations: Individuals with unstable creatinine concentrations, including patients and those with serious co-morbid conditions. Patients with extremes in muscle mass or diet. The data above are obtained from the National Kidney Disease Education Program ( NKDEP) which additionally recommends that when the eGFR is used in patients with extremes of body mass index for purposes of drug dosing, the eGFR should be mul tiplied by the estimated BMI. 3Result Comment: The eGFR is calculated using the CKD-EPI formula. In most young, healthy individuals the eGFR will be >90 mL/min/1.73m2. The eGFR declines with age. An eGFR of 60-89 may be normal in some populations, particularly the elderly, for whom the CKD-EPI formula has not been extensively validated. Use of the eGFR is not recommended in the following populations: Individuals with unstable creatinine concentrations, including patients and those with serious co-morbid conditions. Patients with extremes in muscle mass or diet. The data above are obtained from the National Kidney Disease Education Program ( NKDEP) which additionally recommends that when the eGFR is used in patients with extremes of body mass index for purposes of drug dosing, the eGFR should be mul tiplied by the estimated BMI. 4Interpretive Data: Adult reference range values reflect the clinical guidelines of the [place] [employer]. 5Interpretive Data: Adult reference range values reflect the clinical guidelines of the [place] [employer]. 6Interpretive Data: Adult reference range values reflect the clinical guidelines of the [place] [employer]. CARDIAC ENZYMES 1 2 3 Most recent to oldest [Reference Range]: 0.18 ng/mL (12/28/13 11:30 AM) Troponin-I [0.00-0.40 ng/mL] PARATHYROID PROFILE 1 2 3 Most recent to oldest [Reference Range]: 1.00 mMol/L *LOW* (12/30/13 6:00 AM) 1.03 mMol/L *LOW* (12/29/13 3:46 AM) Ca Ion WB [1.05-1.25 mMol/L] 1.02 mMol/L *LOW* (12/30/13 6:00 AM) 1.04 mMol/L *LOW* (12/29/13 3:46 AM) Ca Norm WB [1.05-1.25 mMol/L] URINE AND STOOL 1 2 3 Most recent to oldest [Reference Range]: Clear (12/29/13 12:00 AM) UA Turbidity [Clear] Yellow *NA* (12/29/13 12:00 AM) UA Color [Yellow] 6.5 (12/29/13 12:00 AM) UA pH [5.0-8.0] 1.010 (12/29/13 12:00 AM) UA Spec Grav [<=1.030] Negative mg/dL (12/29/13 12:00 AM) UA Glucose [Negative mg/dL] Negative (12/29/13 12:00 AM) UA Blood [Negative] Negative mg/dL *NA* (12/29/13 12:00 AM) UA Ketones [Negative mg/dL] Negative mg/dL (12/29/13 12:00 AM) UA Protein [Negative mg/dL] 0.2 EU/dL (12/29/13 12:00 AM) UA Urobilinogen [0.1-1.0 EU/dL] Negative *NA* (12/29/13 12:00 AM) UA Bili [Negative] Negative (12/29/13 12:00 AM) UA Leuk Est [Negative] Negative (12/29/13 12:00 AM) UA Nitrite [Negative] Not Indicated *NA* (12/29/13 12:00 AM) Micro? HEMATOLOGY 1 2 3 Most recent to oldest [Reference Range]: 7.8 K/CMM (12/30/13 6:00 AM) 7.1 K/CMM (12/29/13 3:46 AM) 13.4 K/CMM *HI* (12/28/13 11:30 AM) WBC [3.7-10.4 K/CMM] 4.01 M/CMM *LOW* (12/30/13 6:00 AM) 3.37 M/CMM *LOW* (12/29/13 3:46 AM) 4.26 M/CMM *LOW* (12/28/13 11:30 AM) RBC [4.70-6.10 M/CMM] 12.3 g/dL *LOW* (12/30/13 6:00 AM) 10.3 g/dL *LOW* (12/29/13 3:46 AM) 13.3 g/dL *LOW* (12/28/13 11:30 AM) Hgb [14.0-18.0 g/dL] 36.9 % *LOW* (12/30/13 6:00 AM) 31.0 % *LOW* (12/29/13 3:46 AM) 38.7 % *LOW* (12/28/13 11:30 AM) Hct [42.0-54.0 %] 92.1 fL (12/30/13 6:00 AM) 91.9 fL (12/29/13 3:46 AM) 90.8 fL (12/28/13 11:30 AM) MCV [80.0-94.0 fL] 30.6 pg (12/30/13 6:00 AM) 30.7 pg (12/29/13 3:46 AM) 31.3 pg *HI* (12/28/13 11:30 AM) MCH [27.0-31.0 pg] 33.3 g/dL (12/30/13 6:00 AM) 33.4 g/dL (12/29/13 3:46 AM) 34.5 g/dL (12/28/13 11:30 AM) MCHC [32.0-36.0 g/dL] 14.3 % (12/30/13 6:00 AM) 14.1 % (12/29/13 3:46 AM) 13.3 % (12/28/13 11:30 AM) RDW [11.5-14.5 %] 193 K/CMM (12/30/13 6:00 AM) 157 K/CMM (12/29/13 3:46 AM) 210 K/CMM (12/28/13 11:30 AM) Platelet [133-450 K/CMM] 9.1 fL (12/30/13 6:00 AM) 8.9 fL (12/29/13 3:46 AM) 9.2 fL (12/28/13 11:30 AM) MPV [7.4-10.4 fL] 56.4 % (12/30/13 6:00 AM) 52.4 % (12/29/13 3:46 AM) 77.6 % *HI* (12/28/13 11:30 AM) Segs [45.0-75.0 %] 33.5 % (12/30/13 6:00 AM) 35.6 % (12/29/13 3:46 AM) 15.1 % *LOW* (12/28/13 11:30 AM) Lymphocytes [20.0-40.0 %] 8.6 % (12/30/13 6:00 AM) 9.7 % (12/29/13 3:46 AM) 6.9 % (12/28/13 11:30 AM) Monocytes [2.0-12.0 %] 1.1 % (12/30/13 6:00 AM) 1.7 % (12/29/13 3:46 AM) 0.3 % (12/28/13 11:30 AM) Eosinophils [0.0-4.0 %] 0.4 % (12/30/13 6:00 AM) 0.6 % (12/29/13 3:46 AM) 0.1 % (12/28/13 11:30 AM) Basophils [0.0-1.0 %] 4.4 K/CMM (12/30/13 6:00 AM) 3.7 K/CMM (12/29/13 3:46 AM) 10.5 K/CMM *HI* (12/28/13 11:30 AM) Segs-Bands # [1.5-8.1 K/CMM] 2.6 K/CMM (12/30/13 6:00 AM) 2.5 K/CMM (12/29/13 3:46 AM) 2.0 K/CMM (12/28/13 11:30 AM) Lymphocytes # [1.0-5.5 K/CMM] 0.7 K/CMM (12/30/13 6:00 AM) 0.7 K/CMM (12/29/13 3:46 AM) 0.9 K/CMM *HI* (12/28/13 11:30 AM) Monocytes # [0.0-0.8 K/CMM] 0.1 K/CMM (12/30/13 6:00 AM) 0.1 K/CMM (12/29/13 3:46 AM) 0.0 K/CMM (12/28/13 11:30 AM) Eosinophils # [0.0-0.5 K/CMM] 0.0 K/CMM (12/28/13 11:30 AM) Basophils # [0.0-0.2 K/CMM] Normal (12/28/13 11:30 AM) RBC Morph Normal (12/28/13 11:30 AM) Plt Morph 18.3 seconds *HI* (12/30/13 6:00 AM) 15.8 seconds *HI* (12/29/13 3:46 AM) 23.6 seconds *HI* (12/28/13 11:30 AM) PT [12.0-14.7 seconds] 1.54 7 *HI* (12/30/13 6:00 AM) 1.28 8 *HI* (12/29/13 3:46 AM) 2.15 9 *HI* (12/28/13 11:30 AM) INR [0.85-1.17] 0.27 ug/mL FEU 10 *NA* (12/28/13 12:09 PM) D-Dimer 31.5 seconds 11 (12/30/13 6:00 AM) 28.9 seconds 12 (12/29/13 3:46 AM) 40.7 seconds 13 *HI* (12/28/13 11:30 AM) PTT [22.9-35.8 seconds] 7Interpretive Data: RECOMMENDED RANGES FOR PROTIME INR: 2.0-3.0 for most medical and surgical thromboembolic states. 2.5-3.5 for artificial heart valves and recurrent embolism. INR SHOULD BE USED ONLY FOR PATIENTS ON STABLE ANTICOAGULANT THERAPY. 8Interpretive Data: RECOMMENDED RANGES FOR PROTIME INR: 2.0-3.0 for most medical and surgical thromboembolic states. 2.5-3.5 for artificial heart valves and recurrent embolism. INR SHOULD BE USED ONLY FOR PATIENTS ON STABLE ANTICOAGULANT THERAPY. 9Interpretive Data: RECOMMENDED RANGES FOR PROTIME INR: 2.0-3.0 for most medical and surgical thromboembolic states. 2.5-3.5 for artificial heart valves and recurrent embolism. INR SHOULD BE USED ONLY FOR PATIENTS ON STABLE ANTICOAGULANT THERAPY. 10Interpretive Data: In DIC, quantitative D-Dimer is generally greater than 0.66 ug/mL FEU. Values of quantitative D-Dimer less than 0.40 ug/mL FEU have been reported to be associated with a low probability of deep vein thrombosis/pulmonary embolism. This test alone should not be used to rule out DVT/PE. 11Interpretive Data: Heparin Therapeutic Range: 57 - 92 Seconds 12Interpretive Data: Heparin Therapeutic Range: 57 - 92 Seconds 13Interpretive Data: Heparin Therapeutic Range: 57 - 92 Seconds Medications Administered During Your Visit No data available for this section Immunizations No data available for this section Procedures Procedure Type Body Site Date of Procedure Related Diag nosis Gallbladder operation Social History Social History Type Response Substance Abuse IV drug use: No Sexual Sexually active: No, Change in Libido No Exercise Exercise type: Walking Employment/School Status: Employed Alcohol Previous treatment: None Smoking Status Never smoker, Previous jimenez tment: None, Ready to change: No, Concerns about tobacco use in household: No, Exposure to Tobacco Smoke None, Cigarette Smoking Last 365 Days No, Reg Smoking C essation Counseling No Assessment and Plan Extracted from: Title: History and physical Author: Radha Pizarro REHABILITATION AIDE/SCHEDULER Date: 12/28/13 REHABILITATION AIDE/SCHEDULER Patient Name: Adriano Marroquin Date of Admission: 12/28/2013 Attending: Dr. Rangel Guevara Chief Complaint: palpitations and chest tightness HPI: 73 y.o. male with medical history of Carrot Tier hn's disease, hypertension, and pancreatitis who was recent diagnosed with atrial fibrillation on 11/30/2013. He was started on Xarelto and Multaq with rhythm controlled. He was admitted in December 2013 for exacerbation of Crohn's disease at [facility]. After discharge, he was not restarted on his Multaq. This am he developed severe palpitations and chest tightness and dizziness. His family brought him to the ER at [facility] where he was found to have Atrial flutter with HR 150-170 with BP 86/59. He was cardioverted and rate slowed to 70s in NSR. He was admitted to [facility] for further treatment and monitoring. Medical History: atrial fibrillation, Crohn's disease, HTN, pancreatitis Surgical History: none Family History: No history of arrhythmias or CAD Social History: Denies alcohol, smoking or illicit drug use. Allergies: NKDA Medications (8) Active Scheduled: (8) amLODIPine 10 mg TAB 10 mg 1 tab, PO, Daily dronedarone 400 mg, PO, BID hydrALAZINE 25 mg TAB 25 mg 1 tab, PO, BID olmesartan 20 mg tab 40 mg 2 tab, PO, Daily phosphorus 250mg tab 250 mg 1 tab, PO, TID predniSONE 20 mg TAB 20 mg 1 tab, PO, Daily rivaroxaban 20 mg TAB 20 mg 1 tab, PO, Daily vitamin E 400 IU CAP 400 unit 1 cap, PO, Daily Continuous: (0) PRN: (0) Review of Systems: All systems reviewed including HEENT, respiratory, cardiovascular, gastrointestinal, genitourinary, hematology, integumentary, musculoskeletal, neurological, and endocrine. All within normal limits except plapitations, SOB and dizziness when he first arrived to hospital prior to cardioversion. Now without any complaints. Physical Exam: Neuro - A&Ox3 HEENT - normocephalic Neck - no lymphadenopathy, no JVD, no bruits Chest - normal S1S2, RRR, chest CTA bilaterally Abdomen -soft, NT/ND Extremities - no edema, + pulses bilaterally Vitals and Temp: VitalsTmp(F)[id number] 12/28 17:42 100--- 12/28 17:16----41650/70--99--- 12/28 16:17----49019/77--100--- 12/28 15:40----72 12/28 14:39----70-------100--- 24 Hr Tmax: 98.4F (36.89c) at 12/28 11:1 4Vital Signs are the last 5 in the past 48 hours. Labs (Last four charted values) WBC H 13.4(DEC 28) Hgb L 13.3(DEC 28) Hct L 38.7(DEC 28) Plt 210(DEC 28) Na 135(DEC 28) K 3.8(DEC 28) CO2 24(DEC 28) Cl 102(DEC 28) Cr 1.1(DEC 28) BUN 21(DEC 28) Glucose Random H 153(DEC 28) Mg L 1.6(DEC 28) Phos 2.6(DEC 28) Ca 8.5(DEC 28) PT H 23.6(DEC 28) INR H 2.15(DEC 28) PTT H 40.7(DEC 28) Troponin 0.18(DEC 28) Other Tests: EKG - NSR with occassional PACs. Atrial flutter on admission with rate 150-170. Diagnosis: 1. Atrial flutter 2. Atrial fibrillation 3. HTN 4. Crohn's disease Plan: Will restart Multaq today. After discussion with the patient and family, will plan for atrial flutter ablation on 12/29 since he was very symptomatic with the arrhythmia. Possibly by ablating the atrial flutter, the atrial fibrillation may be controlled. Will need to continue with multaq and xarelto after the procedure and monitor. Will continue with other medications. Will check an echocardiogram to evaluate for structure and function of heart. Will check labs in am. Risks and benefits discussed with patient and he agrees to proceed. Radha Pizarro NP [phone]
--- OUTSIDE RECORDS SUMMARY | 2019-09-30 10:32 | XMS REPORT | Continuity of Care Document ---
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 Role Phone [facility] [place] Information Exchange Unavailable Un available Problems Problem Status Onset Date Classification Date Reported Comments Source K51.00 - ULCERATIVE (CHRONIC) PANCOLITI Active 12/01/2018 [facility] INCREASED HR Active 12/28/2013 [facility] A-FLUTTER/HYPOTENSIVE Active 12/28/2013 [facility] Atrial fibrillation (disorder) Active Problem [facility] Crohn's disease (disorder) Act gerardo Problem [facility], O [facility] [place] Hypertensive disorder, systemic arterial (disorder) Active Problem 12/09/2018 [facility] Pancreatitis (disorder) Resolv ed Problem [facility] Malignant tumor of prostate (disorder) Resolved Problem 12/09/2018 [facility], [facility] ATRIAL FLUTTER Active [facility] Medications Medication Details Route Status Patient Instructions Ordering Provider Order Date Source dronedarone 400 mg oral tablet 400 mg = 1 tab, PO, Q12H, # 60 tab, 3 Refill(s) Active 12/30/2013 [facility] Xarelto Notes: (Same as: Xarel to) Administer with food No Longer Active 12/29/2013 [facility] Magnesium Sulfate 2 gm, 50 mL, Route: IVPB, Drug form: INJ, Q2H, Dosing Weight 84.091, kg, Total dose = 4 gm, Start date: 12/29/13 16:00:00, Duration: 2 doses or times, Stop date: 12/29/13 18:00:00 Inactive 12/29/2013 [facility] vitamin E 400 unit, 1 cap, Rou te: PO, Drug form: CAP, Daily, Dosing Weight 84.091, kg, Start date: 12/29/13 11:30:00, Duration: 30 day, Stop date: 01/28/14 9:00:00 No Longer Active 12/29/2013 [facility] Magnesium Oxide Notes: (Same a s: Mag-Ox 400) Magnesium oxide [id number] elemental magnesium Dose=____mg magnesium oxide (___mg elemental magnesium) Inactive 12/29/2013 [facility] Amlodipine 10 MG / Olmesartan medoxomil 40 MG Oral Tablet [Tee 10/40] 1 tab, Route: PO, Drug Form: TAB, Dosing Weight 84.091, kg, Daily, Start date: 12/29/13 9:00:00, Duration: 30 day, Stop date: 01/27/14 9:00:00 No Longer Active 12/29/2013 [facility] Benicar 40 mg, 2 tab, Route: P O, Drug form: TAB, Daily, Start date: 12/29/13 9:00:00, Duration: 30 day, Stop date: 01/27/14 9:00:00 No Longer Active 12/29/2013 [facility] Norvasc Notes: (Same as: Norva sc) No Longer Active 12/29/2013 [facility] Vitamin E 400 unit, 1 cap, Rou te: PO, Drug form: CAP, Daily, Dosing Weight 84.091, kg, Start date: 12/29/13 9:00:00, Duration: 30 day, Stop date: 01/27/14 9:00:00 Inactive 12/29/2013 [facility] Xarelto 10 mg, Route: PO, Joshua y, Dosing Weight 84.091, kg, Start date: 12/29/13 9:00:00, Duration: 30 day, Stop date: 01/27/14 9:00:00 No Longer Active 12/29/2013 [facility] Prednisone Notes: Take with fo od. No Longer Active 12/29/2013 [facility] potassium phosphate 155 MG / Sodium Phos phate, Dibasic 852 MG / Sodium Phosphate, Monobasic 130 MG Oral Tablet [K-Phos Neutral] Notes: Non-Fomrulary Drug. (Same as: K-Phos) No Longer Active 12/29/2013 [facility] Imodium A-D Notes: Same as Imo dium No Longer Active 12/29/2013 [facility] Multaq Notes: Same as: Multaq No Longer Active 12/29/2013 [facility] Magnesium Oxide Notes: (Same a s: Mag-Ox 400) Magnesium oxide [id number] elemental magnesium Dose=____mg magnesium oxide (___mg elemental magnesium) Inactive 12/29/2013 [facility] Potassium Chloride Notes: (Igor e as: K-Dur 20) "Do Not Crush" With food and full glass of water Inactive 12/29/[address] [facility] Hydralazine Notes: (Same as: A presoline) May interfere w/enteral feedings Take With Food. No Longer Active 12/28/2013 [facility] Multaq 400 mg, Route: PO, BID, Dosing Weight 84.091, kg, Start date: 12/28/13 17:00:00, Duration: 30 day, Stop date: 01/27/14 9:00:00 Inactive 12/28/2013 [facility] Imodium Multi-Symptom Relief O TC 1 tablet, PO, Daily, as needed for loose stool Active 12/28/2013 [facility] potassium phosphate 155 MG / Sodium Phos phate, Dibasic 852 MG / Sodium Phosphate, Monobasic 130 MG Oral Tablet [K-Phos Neutral] 1 tablet, PO, TID Active 12/28/2013 [facility] predniSONE 20 mg oral tablet 2 0 mg = 1 tab, PO, Daily Active 12/28/2013 [facility] Vitamin E OTC 1 tablet, PO, Da eric Active 12/28/2013 [facility] Amlodipine 10 MG / Olmesartan medoxomil 40 MG Oral Tablet [Tee 10/40] 1 tab, PO, Daily Active 12/28/2013 [facility] metoprolol extended release No humble: (Same as: Toprol XL) Do Not Crush Inactive 12/28/2013 [facility] diltiazem 12 hour extended release 60 mg, Route: PO, ONCE, Dosing Weight 85.455, kg, Priority: NOW, Start date: 12/28/13 12:01:00, Stop date: 12/28/13 12:01:00 Inactive 12/28/[address] [facility] Diltiazem 20 mg, Route: IVP, O NCE, Dosing Weight 85.455, kg, Priority: STAT, Start date: 12/28/13 12:00:00, Stop date: 12/28/13 12:00:00 Inactive 12/28/2013 [facility] Ondansetron 4 mg, Route: IVP, Drug form: INJ, ONCE, Dosing Weight 85.455, kg, Priority: STAT, Start date: 12/28/13 11:56:00, Stop date: 12/28/13 11:56:00 Inactive 12/28/2013 [facility] Propofol 20 mg, Route: IVP, ON CE, Dosing Weight 85.455, kg, Priority: STAT, Start date: 12/28/13 11:56:00, Stop date: 12/28/13 11:56:00 Inactive 12/28/2013 [facility] Fentanyl Notes: (Same as: Subl imaze) Preservative free. Inactive 12/28/2013 [facility] NS 1,000 mL Special Instructio ns: Bolus Dose Inactive 12/28/2013 [facility] Sodium Chloride 0.154 MEQ/ML Injectable Solution 1,000 mL, 1,000 ml/hr, Infuse Over: 1 hr, Route: IV, ONCE, Priority: STAT, Dosing Weight 85.455 kg, Start date: 12/28/13 11:31:00, Duration: 1 doses or times, Stop date: 12/28/13 11:31:00 Inactive 12/28/2013 [facility] Xarelto 10 mg, PO, Daily, 0 Re fill(s) Active 12/28/2013 [facility] Amlodipine 10 MG / Olmesartan medoxomil 20 MG Oral Tablet [Tee 10/20] 0 Refill(s) No Longer Active 12/28/2013 [facility] Lomotil 1 tab, PO, QID, Diarrh ea, 0 Refill(s) Active 12/28/2013 [facility] Plavix 75 mg, PO, Daily, 0 Ref ill(s) Active 12/28/2013 [facility] Hydralazine 25 mg, PO, BID, 0 Refill(s) No Longer Active 12/28/2013 [facility] Allergies, Adverse Reactions, Alerts Substance Category Reaction Severity Reaction type Status Date Reported Comments Source No Known Medication Allergies Assertion Drug aller gy [facility] Immunizations No Data Provided for This Section Results Order Name Results Value Reference Range Date Interpretation Comments Source CHEM PANEL Phosphorus 2.8 2.5 - 4.5 12/30/2013 [facility] CHEM PANEL Magnesium Lvl 2.5 1.8 - 2.4 12/30/2013 [facility] ELECTROLYTES AGAP 15.2 10.0 - 20.0 12/30/2013 [facility] ELECTROLYTES Sodium Lvl 138 135 - 145 12/30/2013 [facility] ELECTROLYTES Potassium Lvl 4.2 3.5 - 5.1 12/30/2013 [facility] ELECTROLYTES BUN 13 7 - 22 12/30/2013 [facility] ELECTROLYTES Creatinine Lvl 0.7 0.5 - 1.4 12/30/2013 [facility] ELECTROLYTES Glucose Lvl 79 70 - 99 12/30/2013 <sup>4</sup>Interpretive Data: Adult ref erence range values reflect the clinical guidelines
of the [place] [employer]. [facility] ELECTROLYTES eGFR 94 12/30/2013 <sup>1</sup>Result Comment: The eGFR is calculated using the CKD-EPI formula. In most young, healthy individuals the eGFR will be >90 mL/min/1.73m2. The eGFR declines with age. An eGFR of 60-89 may be normal in some populations, particularly the elderly, for whom the CKD-EPI formula has not been extensively validated. Use of the eGFR is not recommended in the following populations:& lt;br/>
Individuals with unstable creatinine concentrations, including patients and those with serious co-morbid conditions.

Patients with extremes in muscle mass or diet.

The data above are obtained from the National Kidney Disease Education Program (NKDEP) which additionally recommends that when the eGFR is used in patients with extremes of body mass index for purposes of drug dosing, the eGFR should be multiplied by the estimated BMI. [facility] ELECTROLYTES Calcium Lvl 8.2 8.5 - 10.5 12/30/2013 [facility] ELECTROLYTES Chloride Lvl 103 95 - 109 12/30/2013 [facility] ELECTROLYTES CO2 24 24 - 32 12/30/2013 [facility] HEMATOLOGY RBC 4.01 4.70 - 6.10 12/30/2013 [facility] HEMATOLOGY WBC 7.8 3.7 - 10.4 12/30/2013 [facility] HEMATOLOGY Hgb 12.3 14.0 - 18.0 12/30/2013 [facility] HEMATOLOGY RDW 14.3 11.5 - 14.5 12/30/2013 [facility] HEMATOLOGY MCHC 33.3 32.0 - 36.0 12/30/2013 [facility] HEMATOLOGY MCV 92.1 80.0 - 94.0 12/30/2013 [facility] HEMATOLOGY Hct 36.9 42.0 - 54.0 12/30/2013 [facility] HEMATOLOGY MCH 30.6 27.0 - 31.0 12/30/2013 [facility] HEMATOLOGY MPV 9.1 7.4 - 10.4 12/30/2013 [facility] HEMATOLOGY Platelet 193 133 - 450 12/30/2013 [facility] HEMATOLOGY INR 1.54 0.85 - 1.17 12/30/2013 <sup>7</sup>Interpretive Data: RECOMMEND ED RANGES FOR PROTIME INR:
2.0- 3.0 for most medical and surgical thromboembolic states.
2.5-3.5 for artificial heart valves and recurrent embolism.

INR SHOULD BE USED ONLY FOR PATIENTS ON STABLE ANTICOAGULANT THERAPY. [facility] HEMATOLOGY PT 18.3 12.0 - 14.7 12/30/2013 [facility] HEMATOLOGY PTT 31.5 22.9 - 35.8 12/30/2013 <sup>11</sup>Interpretive Data: Heparin Therapeutic Range: 57 - 92 Seconds [facility] HEMATOLOGY Segs 56.4 45.0 - 75.0 12/30/2013 [facility] HEMATOLOGY Lymphocytes 33.5 20.0 - 40.0 12/30/2013 [facility] HEMATOLOGY Monocytes 8.6 2.0 - 12.0 12/30/2013 [facility] HEMATOLOGY Eosinophils 1.1 0.0 - 4.0 12/30/2013 [facility] HEMATOLOGY Segs-Bands # 4.4 1.5 - 8.1 12/30/2013 [facility] HEMATOLOGY Lymphocytes # 2.6 1.0 - 5.5 12/30/2013 [facility] HEMATOLOGY Basophils 0.4 0.0 - 1.0 12/30/2013 [facility] HEMATOLOGY Eosinophils # 0.1 0.0 - 0.5 12/30/2013 [facility] HEMATOLOGY Monocytes # 0.7 0.0 - 0.8 12/30/2013 [facility] PARATHYROID PROFILE Ca Norm WB 1.02 1.05 - 1.25 12/30/2013 [facility] PARATHYROID PROFILE Ca Ion WB 1.00 1.05 - 1.25 12/30/2013 [facility] CHEM PANEL eGFR 89 12/29/2013 <sup>2</sup>Result Comment: The eGFR is calculated using the CKD-EPI formula. In most young, healthy individuals the eGFR will be >90 mL/min/1.73m2. The eGFR declines with age. An eGFR of 60-89 may be normal in some populations, particularly the elderly, for whom the CKD-EPI formula has not been extensively validated. Use of the eGFR is not recommended in the following populations:& lt;br/>
Individuals with unstable creatinine concentrations, including patients and those with serious co-morbid conditions.

Patients with extremes in muscle mass or diet.

The data above are obtained from the National Kidney Disease Education Program (NKDEP) which additionally recommends that when the eGFR is used in patients with extremes of body mass index for purposes of drug dosing, the eGFR should be multiplied by the estimated BMI. [facility] CHEM PANEL BUN 16 7 - 22 12/29/2013 [facility] CHEM PANEL Creatinine Lvl 0.8 0.5 - 1.4 12/29/2013 [facility] CHEM PANEL Glucose Lvl 75 70 - 99 12/29/2013 <sup>5</sup>Interpretive Data: Adult ref erence range values reflect the clinical guidelines
of the [place] [employer]. [facility] CHEM PANEL AGAP 12.9 10.0 - 20.0 12/29/2013 [facility] CHEM PANEL CO2 25 24 - 32 12/29/2013 [facility] CHEM PANEL Potassium Lvl 3.9 3.5 - 5.1 12/29/2013 [facility] CHEM PANEL Calcium Lvl 7.6 8.5 - 10.5 12/29/2013 [facility] CHEM PANEL Sodium Lvl 141 135 - 145 12/29/2013 [facility] CHEM PANEL Chloride Lvl 107 95 - 109 12/29/2013 [facility] CHEM PANEL Phosphorus 2.0 2.5 - 4.5 12/29/2013 [facility] CHEM PANEL Magnesium Lvl 1.4 1.8 - 2.4 12/29/2013 [facility] HEMATOLOGY MCH 30.7 27.0 - 31.0 12/29/2013 [facility] HEMATOLOGY Platelet 157 133 - 450 12/29/2013 [facility] HEMATOLOGY MCHC 33.4 32.0 - 36.0 12/29/2013 [facility] HEMATOLOGY RDW 14.1 11.5 - 14.5 12/29/2013 [facility] HEMATOLOGY Hct 31.0 42.0 - 54.0 12/29/2013 [facility] HEMATOLOGY MCV 91.9 80.0 - 94.0 12/29/2013 [facility] HEMATOLOGY MPV 8.9 7.4 - 10.4 12/29/2013 [facility] HEMATOLOGY WBC 7.1 3.7 - 10.4 12/29/2013 [facility] HEMATOLOGY RBC 3.37 4.70 - 6.10 12/29/2013 [facility] HEMATOLOGY Hgb 10.3 14.0 - 18.0 12/29/2013 [facility] HEMATOLOGY PTT 28.9 22.9 - 35.8 12/29/2013 <sup>12</sup>Interpretive Data: Heparin Therapeutic Range: 57 - 92 Seconds [facility] HEMATOLOGY INR 1.28 0.85 - 1.17 12/29/2013 <sup>8</sup>Interpretive Data: RECOMMEND ED RANGES FOR PROTIME INR:
2.0- 3.0 for most medical and surgical thromboembolic states.
2.5-3.5 for artificial heart valves and recurrent embolism.

INR SHOULD BE USED ONLY FOR PATIENTS ON STABLE ANTICOAGULANT THERAPY. [facility] HEMATOLOGY PT 15.8 12.0 - 14.7 12/29/2013 [facility] HEMATOLOGY Lymphocytes 35.6 20.0 - 40.0 12/29/2013 [facility] HEMATOLOGY Monocytes 9.7 2.0 - 12.0 12/29/2013 [facility] HEMATOLOGY Eosinophils 1.7 0.0 - 4.0 12/29/2013 [facility] HEMATOLOGY Basophils 0.6 0.0 - 1.0 12/29/2013 [facility] HEMATOLOGY Segs-Bands # 3.7 1.5 - 8.1 12/29/2013 [facility] HEMATOLOGY Eosinophils # 0.1 0.0 - 0.5 12/29/2013 [facility] HEMATOLOGY Monocytes # 0.7 0.0 - 0.8 12/29/2013 [facility] HEMATOLOGY Lymphocytes # 2.5 1.0 - 5.5 12/29/2013 [facility] HEMATOLOGY Segs 52.4 45.0 - 75.0 12/29/2013 [facility] PARATHYROID PROFILE Ca Norm WB 1.04 1.05 - 1.25 12/29/2013 [facility] PARATHYROID PROFILE Ca Ion WB 1.03 1.05 - 1.25 12/29/2013 [facility] URINE AND STOOL Micro? Not Indicated *NA* (12/29/13 12:00 AM) 12/29/2013 [facility] URINE AND STOOL UA Leuk Est Negative (12/29/13 12:00 AM) Negative 12/29/2013 [facility] URINE AND STOOL UA Nitrite Negative (12/29/13 12:00 AM) Negative 12/29/2013 [facility] URINE AND STOOL UA Urobilinogen 0.2 0.1 - 1.0 12/29/2013 [facility] URINE AND STOOL UA Ketones Negative mg/dL Negative mg/dL 12/29/2013 [facility] URINE AND STOOL UA Bili Negative *NA* (12/29/13 12:00 AM) Negative 12/29/2013 [facility] URINE AND STOOL UA Blood Negative (12/29/13 12:00 AM) Negative 12/29/2013 [facility] URINE AND STOOL UA Spec Grav 1.010 <=1.030 12/29/2013 [facility] URINE AND STOOL UA Turbidity Clear (12/29/13 12:00 AM) Clear 12/29/2013 [facility] URINE AND STOOL UA pH 6.5 5.0 - 8.0 12/29/2013 [facility] URINE AND STOOL UA Protein Negative mg/dL Negative mg/dL 12/29/2013 [facility] URINE AND STOOL UA Glucose Negative mg/dL Negative mg/dL 12/29/2013 [facility] URINE AND STOOL UA Color Yellow *NA* (12/29/13 12:00 AM) Yellow 12/29/2013 [facility] CHEM PANEL Alk Phos 87 39 - 136 12/28/2013 [facility] CHEM PANEL ALT 45 0 - 65 12/28/2013 [facility] HEMATOLOGY D-Dimer 0.27 12/28/2013 <sup>10</sup>Interpretive Data: In DIC, quantitative D-Dimer is generally greater than
0.66 ug/mL FEU. Values of quantitative D-Dimer less than
0.40 ug/mL FEU have been reported to be associated with a low
probability of deep vein thrombosis/pulmonary embolism.
This test alone should not be used to rule out DVT/PE. [facility] CARDIAC ENZYMES Troponin-I 0.18 0.00 - 0.40 12/28/2013 [facility] CHEM PANEL Phosphorus 2.6 2.5 - 4.5 12/28/2013 [facility] CHEM PANEL Magnesium Lvl 1.6 1.8 - 2.4 12/28/2013 [facility] CHEM PANEL eGFR 67 12/28/2013 <sup>3</sup>Result Comment: The eGFR is calculated using the CKD-EPI formula. In most young, healthy individuals the eGFR will be >90 mL/min/1.73m2. The eGFR declines with age. An eGFR of 60-89 may be normal in some populations, particularly the elderly, for whom the CKD-EPI formula has not been extensively validated. Use of the eGFR is not recommended in the following populations:& lt;br/>
Individuals with unstable creatinine concentrations, including patients and those with serious co-morbid conditions.

Patients with extremes in muscle mass or diet.

The data above are obtained from the National Kidney Disease Education Program (NKDEP) which additionally recommends that when the eGFR is used in patients with extremes of body mass index for purposes of drug dosing, the eGFR should be multiplied by the estimated BMI. [facility] CHEM PANEL Sodium Lvl 135 135 - 145 12/28/2013 [facility] CHEM PANEL CO2 24 24 - 32 12/28/2013 [facility] CHEM PANEL Chloride Lvl 102 95 - 109 12/28/2013 [facility] CHEM PANEL Calcium Lvl 8.5 8.5 - 10.5 12/28/2013 [facility] CHEM PANEL Potassium Lvl 3.8 3.5 - 5.1 12/28/2013 [facility] CHEM PANEL Glucose Lvl 153 70 - 99 12/28/2013 <sup>6</sup>Interpretive Data: Adult ref erence range values reflect the clinical guidelines
of the [place] [employer]. [facility] CHEM PANEL Creatinine Lvl 1.1 0.5 - 1.4 12/28/2013 [facility] CHEM PANEL BUN 21 7 - 22 12/28/2013 [facility] CHEM PANEL AGAP 12.8 10.0 - 20.0 12/28/2013 [facility] HEMATOLOGY Monocytes # 0.9 0.0 - 0.8 12/28/2013 [facility] HEMATOLOGY Eosinophils # 0.0 0.0 - 0.5 12/28/2013 [facility] HEMATOLOGY Basophils # 0.0 0.0 - 0.2 12/28/2013 [facility] HEMATOLOGY Lymphocytes # 2.0 1.0 - 5.5 12/28/2013 [facility] HEMATOLOGY Eosinophils 0.3 0.0 - 4.0 12/28/2013 [facility] HEMATOLOGY Monocytes 6.9 2.0 - 12.0 12/28/2013 [facility] HEMATOLOGY Segs-Bands # 10.5 1.5 - 8.1 12/28/2013 [facility] [facility] HEMATOLOGY Basophils 0.1 0.0 - 1.0 12/28/2013 [facility] HEMATOLOGY Plt Morph Diann l (12/28/13 11:30 AM) 12/28/2013 [facility] HEMATOLOGY RBC Morph Diann l (12/28/13 11:30 AM) 12/28/2013 [facility] HEMATOLOGY Lymphocytes 15.1 20.0 - 40.0 12/28/2013 [facility] HEMATOLOGY Segs 77.6 45.0 - 75.0 12/28/2013 [facility] HEMATOLOGY WBC 13.4 3.7 - 10.4 12/28/2013 [facility] HEMATOLOGY RBC 4.26 4.70 - 6.10 12/28/2013 [facility] HEMATOLOGY Hgb 13.3 14.0 - 18.0 12/28/2013 [facility] HEMATOLOGY Platelet 210 133 - 450 12/28/2013 [facility] HEMATOLOGY MPV 9.2 7.4 - 10.4 12/28/2013 [facility] HEMATOLOGY RDW 13.3 11.5 - 14.5 12/28/2013 [facility] HEMATOLOGY Hct 38.7 42.0 - 54.0 12/28/2013 [facility] HEMATOLOGY MCV 90.8 80.0 - 94.0 12/28/2013 [facility] HEMATOLOGY MCH 31.3 27.0 - 31.0 12/28/2013 [facility] HEMATOLOGY MCHC 34.5 32.0 - 36.0 12/28/2013 [facility] HEMATOLOGY PT 23.6 12.0 - 14.7 12/28/2013 [facility] HEMATOLOGY INR 2.15 0.85 - 1.17 12/28/2013 <sup>9</sup>Interpretive Data: RECOMMEND ED RANGES FOR PROTIME INR:
2.0- 3.0 for most medical and surgical thromboembolic states.
2.5-3.5 for artificial heart valves and recurrent embolism.

INR SHOULD BE USED ONLY FOR PATIENTS ON STABLE ANTICOAGULANT THERAPY. [facility] HEMATOLOGY PTT 40.7 22.9 - 35.8 12/28/2013 <sup>13</sup>Interpretive Data: Heparin Therapeutic Range: 57 - 92 Seconds [facility] Pathology Reports No Data Provided for This Section Diagnostic Reports Report Value Date Source Bone Density DXA [employer] MA MALE BONE DENSITY ASSESSMENT: 12/07/2018 CLINICAL DATA: M81.0 Age-related osteoporosis without current pathologic fracture. Encounter For Screening For Osteoporosis/Z13.820 RISK FACTORS: race. FINDINGS: Bone density evaluation was performed 12/07/2018 on the right femur neck using a Hologic unit. The BMD average for the exam is 0.669 g/cm2. The T-score is -1.90 and the Z-score is -0.50. This matches the World Health Organization's criteria for osteopenia and places the patient at a medium risk for fracture. An additional bone density evaluation was performed 12/07/2018 on the left femur neck using a Hologic unit. The BMD average for the exam is 0.696 g/cm2. The T- score is -1.70 and the Z-score is -0.30. This matches the World Health Organization's criteria for osteopenia and places the patient at a medium risk for fracture. An additional bone density evaluation was performed 12/07/2018 on the right hip using a Hologic unit. The BMD average for the exam is 0.827 g/cm2. The T-score is -1.40 and the Z-score is -0.40. This matches the World Health Organization's criteria for osteopenia and places the patient at a medium risk for fracture. An additional bone density evaluation was performed 12/07/2018 on the left hip using a Hologic unit. The BMD average for the exam is 0.873 g/cm2. The T-score is -1.10 and the Z-score is -0.10. This matches the World Health Organization's criteria for osteopenia and places the patient at a medium risk for fracture. An additional bone density evaluation was performed 12/07/2018 on the AP L1-L4 region of spine using a Hologic unit. The BMD average for the exam is 1.440 g/cm2. The T-score is 3.20 and the Z-score is 4.30. This matches the World Health Organization's criteria for normal bone density and places the patient within normal limits of fracture risk. FRAX 10 year probability of major osteoporotic fracture is 8.1% and hip fracture is 2.9%. IMPRESSION: OSTEOPENIA Patient is at medium risk for fracture. This exam was interpreted at [id number] for ANDI Egan, SL 15. Taqueria Burleson M.D., cm/ronald:12/07/2018 11:55:45 Warrant Clerk(s): Pauline DODGE(R)(M), [facility] 12/07/2018 DOMINGO Egan Consultation Notes No Data Provided for This Section Discharge Summaries No Data Provided for This Section History and Physicals No Data Provided for This Section Vital Signs Vital Sign Value Date Comments Source Diastolic (mm Hg) 74 12/30/2013 [facility] Systolic (mm Hg) 141 12/30/2013 [facility] Respitory Rate 15 12/30/2013 [facility] Systolic (mm Hg) 146 12/30/2013 [facility] Diastolic (mm Hg) 80 12/30/2013 [facility] Respitory Rate 20 12/30/2013 [facility] Temperature Oral (F) 96.8 F 12/30/2013 [facility] Respitory Rate 27 12/30/2013 [facility] Systolic (mm Hg) 120 12/30/2013 [facility] Diastolic (mm Hg) 70 12/30/2013 [facility] Temperature Oral (F) 96.8 F 12/30/2013 [facility] Temperature Oral (F) 96.9 F 12/29/2013 [facility] Weight 84.091 12/28/2013 [facility] Height 170.18 cm 12/28/2013 [facility] BMI Calculated 29.04 12/28/2013 [facility] Height 187.96 cm 12/28/2013 [facility] BMI Calculated 25.64 12/28/2013 [facility] Weight 90.597 12/28/2013 [facility] Heart Rate 155 12/28/2013 [facility] Weight 85.455 12/28/2013 [facility] Height 185.42 cm 12/28/2013 [facility] BMI Calculated 24.86 12/28/2013 [facility] Heart Rate 157 12/28/2013 [facility] Encounters Location Location Details Encounter Type Encounter Number Reason For Visit Attending Provider ADM Date DC Date Status Source [facility] Inpatient [id number] Rangel Guevara 4 12/30/[address] [facility] [id number] Mehnaz Leyva 12/07/2018 12/08/2018 [facility] Procedures Procedure Code Date Perfomer Comments Source Gallbladder operation [id number] [facility] Assessment and Plan Assessment and Plan Date Source Extracted from:Title: History and physic al Author: Radha Pizarro NP BROADCAST DESIGNER Date: 12/28/13 Patient Name: Adriano Marroquin Date of Admission: 12/28/2013 Attending: Dr. Rangel Guevara Chief Complaint: palpitations and chest tightness HPI: 73 y.o. 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 He was started on Xarelto and Multaq with rhythm controlled. He was admitted in December 2013 for exacerbation of Crohn's disease at [facility]. After discharge, he was not restarted on his Multaq. This am he developed severe palpitations and chest tightness and dizziness. His family brought him to the ER at [facility] where he was found to have Atrial flutter with HR 150-170 with BP 86/59. He was cardioverted and rate slowed to 70s in NSR. He was admitted to [facility] for further treatment and monitoring. Medical History: [...] edema, + pulses bilaterally Vitals and Temp: Vitals Tmp(F) Pulse BP RR SpO2 FIO2 12/28 17:42 ---- --- ----- - - 100 --- 12/28 17:16 ---- 68 132/70 - - 99 --- 12/28 16:17 ---- 68 126/77 - - 100 --- 12/28 15:40 ---- 72 ----- -- --- --- 12/28 14:39 ---- 70 ----- -- 100 --- 24 Hr Tmax: 98.4F (36.89c) at 12/28 11:1 4 Vital Signs are the last 5 in the past 48 hours. Labs (Last four charted values) WBC H 13.4 (DEC 28) Hgb L 13.3 (DEC 28) Hct L 38.7 (DEC 28) Plt 210 (DEC 28) Na 135 (DEC 28) K 3.8 (DEC 28) CO2 24 (DEC 28) Cl 102 (DEC 28) Cr 1.1 (DEC 28) BUN 21 (DEC 28) Glucose Random H 153 (DEC 28) Mg L 1.6 (DEC 28) Phos 2.6 (DEC 28) Ca 8.5 (DEC 28) PT H 23.6 (DEC 28) INR H 2.15 (DEC 28) PTT H 40.7 (DEC 28) Troponin 0.18 (DEC 28) Other Tests: EKG - NSR with [...] he agrees to proceed. Radha Pizarro NP [phone] 12/30/2013 [facility] Plan of Care No Data Provided for This Section Social History Social History Date Source Social History TypeResponse Substance Abuse IV drug use: No. Sexual Sexually active: No. Change in Libido: No. Exercise Exercise type: Walking. Employment/School Status: Employed. Alcohol Previous treatment: None. Smoking Status Never smoker; Previous treatment: None; Ready to change: No; Concerns about tobacco use in household: No; Exposure to Tobacco Smoke None; Cigarette Smoking Last 365 Days No; Reg Smoking Cessation Counseling No entered on: 12/28/13 12/28/2013 DOMINGO Egan Social History TypeResponse Substance Abuse IV drug use: No Sexual Sexually active: No, Change in Libido No Exercise Exercise type: Walking Employment/School Status: Employed Alcohol Previous treatment: None Smoking Status Never smoker, Previous treatment: None, Ready to change: No, Concerns about tobacco use in household: No, Exposure to Tobacco Smoke None, Cigarette Smoking Last 365 Days No, Reg Smoking Cessation Counseling No 12/28/2013 [facility] Family History No Data Provided for This Section Advance Directives No Data Provided for This Section Functional Status No Data Provided for This Section
== END | disposition home or self-care (01) ==
LOC: OR 05:45
PROVIDERS: ATTEND Physical Medicine & Rehabilitation Pain Medicine
DX: M54.16 Radiculopathy, lumbar region (principal); M47.896 Other spondylosis, lumbar region; I10 Essential (primary) hypertension; K50.90 Crohn's disease, unspecified, without complications; H91.90 Unspecified hearing loss, unspecified ear; I25.10 Atherosclerotic heart disease of native coronary artery without angina pectoris; I48.91 Unspecified atrial fibrillation; Z98.61 Coronary angioplasty status; Z88.6 Allergy status to analgesic agent; Z01.810 Encounter for preprocedural cardiovascular examination; Z01.812 Encounter for preprocedural laboratory examination; Z11.59 Encounter for screening for other viral diseases; Z79.02 Long term (current) use of antithrombotics/antiplatelets; Z79.82 Long term (current) use of aspirin
CPT/HCPCS: 36415; 64483; 64484 ×4; 85025; 87635; 93005; J1100; J2001 ×2; J2250; J2704; J3010; Q9967; 77003

== ENCOUNTER → 2019-10-28 | Day surgery (SDC) | payer MEDICARE, OTHER ==
[2019-10-25 14:18] LABS: BASOPHILS % 0.5 % (0.0-1.0); EOSINOPHILS # (AUTO) 0.3 (0.0-0.4); EOSINOPHILS % 5.4 % (0.0-6.0); HEMATOCRIT 34.2 % (38.2-49.6); HEMOGLOBIN 10.8 g/dL (14.0-18.0); LYMPHOCYTES # (AUTO) 1.3 (1.0-3.2); MEAN CORPUSCULAR HEMOGLOBIN 28.2 pg (28-32); MEAN CORPUSCULAR HGB CONC 31.6 g/dL (31-35); MEAN CORPUSCULAR VOLUME 89.3 fL (81-99); MONOCYTES # (AUTO) 0.7 (0.2-0.8); MONOCYTES % 12.7 % (4.4-11.3); NEUTROPHILS # (AUTO) 3.3 (2.1-6.9); NEUTROPHILS % 58.4 % (38.7-80.0); PLATELET COUNT 222 x10e3/uL (140-360); RED BLOOD COUNT 3.83 x10e6/uL (4.3-5.7); RED CELL DISTRIBUTION WIDTH 15.2 % (11.7-14.4)
[~2019-10-28] MED LIST changes: -DEXAMETHASONE SOD PHOS 10 MG/1 ML VIAL ONE; +DIATRIZOATE MEGL/DIATRIZOA SOD 30 ML BTL PO ONE; -MIDAZOLAM HCL 2 MG/2 ML VIAL ONE; +TRIAMCINOLONE ACET 40 MG/ML VIAL ONE
[2019-10-28 07:30] VITALS: BP 124/61
== END | disposition home or self-care (01) ==
LOC: OR 06:00
PROVIDERS: ATTEND Physical Medicine & Rehabilitation Pain Medicine
DX: M47.896 Other spondylosis, lumbar region (principal); M54.16 Radiculopathy, lumbar region; I25.10 Atherosclerotic heart disease of native coronary artery without angina pectoris; I10 Essential (primary) hypertension; I48.91 Unspecified atrial fibrillation; I25.2 Old myocardial infarction; K21.9 Gastro-esophageal reflux disease without esophagitis; K50.90 Crohn's disease, unspecified, without complications; Z88.6 Allergy status to analgesic agent; Z01.812 Encounter for preprocedural laboratory examination; Z11.59 Encounter for screening for other viral diseases; Z79.82 Long term (current) use of aspirin; Z85.46 Personal history of malignant neoplasm of prostate; Z95.5 Presence of coronary angioplasty implant and graft
CPT/HCPCS: 36415; 64493; 64494; 64495; 85025; J2001 ×2; J2704; J3010; J3301; Q9967; U0002; 77003

== ENCOUNTER 2020-02-08 06:26 | Observation (INO) | payer MEDICARE, OTHER ==
[~2020-02-08] VITALS: Ht 188 cm; Wt 93.0 kg
[~2020-02-08 06:26] MED LIST changes: -DIATRIZOATE MEGL/DIATRIZOA SOD 30 ML BTL PO ONE; -FENTANYL CITRATE/PF 100MCG/2 ML INJ ONE; -IOPAMIDOL 200 MG/ML 20 ML VIAL IT ONE; -LIDOCAINE HCL 1% 30ML-PF VIAL ONE; -LIDOCAINE HCL 2% LOCAL INJ 5 ML SDV VIAL INJ ONE; -PROPOFOL IV EMULSION 10 MG/ML 20 ML VIAL ONE; -TRIAMCINOLONE ACET 40 MG/ML VIAL ONE
[2020-02-08] MEDS ORDERED: SODIUM CHLORIDE 0.9% 1000ML 1,000 ML IV SCH (07:00)
[2020-02-08 07:01] LABS: BASOPHILS % 0.5 % (0.0-1.0); EOSINOPHILS # (AUTO) 0.2 (0.0-0.4); EOSINOPHILS % 3.3 % (0.0-6.0); HEMATOCRIT 36.7 % (38.2-49.6); HEMOGLOBIN 12.3 g/dL (14.0-18.0); LYMPHOCYTES # (AUTO) 1.1 (1.0-3.2); LYMPHOCYTES % 19.1 % (18.0-39.1); MEAN CORPUSCULAR HEMOGLOBIN 28.9 pg (28-32); MEAN CORPUSCULAR HGB CONC 33.5 g/dL (31-35); MEAN CORPUSCULAR VOLUME 86.4 fL (81-99); MONOCYTES # (AUTO) 0.8 (0.2-0.8); MONOCYTES % 13.1 % (4.4-11.3); NEUTROPHILS # (AUTO) 3.7 (2.1-6.9); NEUTROPHILS % 63.7 % (38.7-80.0); PLATELET COUNT 193 x10e3/uL (140-360); RED BLOOD COUNT 4.25 x10e6/uL (4.3-5.7); RED CELL DISTRIBUTION WIDTH 17.5 % (11.7-14.4)
[2020-02-08 07:31] LABS: ALANINE AMINOTRANSFERASE 23 IU/L (0-55); ALBUMIN 4.2 g/dL (3.5-5.0); ALBUMIN/GLOBULIN RATIO 1.8 (0.8-2.0); ALKALINE PHOSPHATASE 62 IU/L (40-150); BLOOD UREA NITROGEN 10 mg/dL (7-26); BUN/CREATININE RATIO 9 (6-25); CALCIUM 9.2 mg/dL (8.4-10.2); CARBON DIOXIDE 23 mmol/L (22-29); CHLORIDE 100 mmol/L (98-107); CREATININE, SERUM 1.06 mg/dL (0.72-1.25); EST GLOMERULAR FILTRATION RATE > 60 ML/MIN (60-); GLUCOSE 120 mg/dL (74-118); SODIUM 131 mmol/L (136-145)
[2020-02-08 11:46] VITALS: BP 143/74
[2020-02-08 12:00] VITALS: BP 143/74
[2020-02-08 12:35] VITALS: BP 143/74
[2020-02-08 15:43] VITALS: BP 132/72
[2020-02-08] MEDS ORDERED: APIXAB 2.5 MG TABLET PO SCH (17:00)
[2020-02-08 20:00] VITALS: BP 130/69
[2020-02-08 21:00] VITALS: BP 130/69
[2020-02-08] MEDS ORDERED: ATORVASTATIN 40 MG TAB PO SCH (21:00)
[2020-02-09] VITALS: BP 134/74
[2020-02-09 04:00] VITALS: BP 155/78
[2020-02-09 08:00] VITALS: BP 147/69
[2020-02-09] MEDS ORDERED: ALENDRONATE SODIUM 10 MG PO SCH (09:00)
[2020-02-09] MEDS ORDERED: HYDROCHLOROTHIAZIDE 25 MG TAB PO SCH (09:00)
[2020-02-09] MEDS ORDERED: AMLODIPINE BESYLATE 5 MG TAB PO SCH (09:00)
[2020-02-09] MEDS ORDERED: AZATHIOPRINE 50 MG TAB PO SCH (09:00)
[2020-02-09] MEDS ORDERED: VALSARTAN 160 MG TAB PO SCH (09:00)
[2020-02-09] MEDS ORDERED: PANTOPRAZOLE SOD 40 MG TABEC PO SCH (09:00)
[2020-02-09] MEDS ORDERED: COLESTIPOL HCL 1 G TAB PO SCH (09:00)
[2020-02-09] MEDS ORDERED: ASPIRIN 81 MG CHEW TAB PO SCH (09:00)
== END 2020-02-09 08:55 | disposition left against medical advice (07) ==
LOC: ER 06:50 → ERHOLD 08:47 → MED/SURG2 10:51
PROVIDERS: ADMIT Internal Medicine; ATTEND Internal Medicine
DX: R00.1 Bradycardia, unspecified (principal); I48.20 Chronic atrial fibrillation, unspecified; I10 Essential (primary) hypertension; R07.9 Chest pain, unspecified; E78.5 Hyperlipidemia, unspecified; Z88.5 Allergy status to narcotic agent; D63.8 Anemia in other chronic diseases classified elsewhere; E87.1 Hypo-osmolality and hyponatremia; R94.31 Abnormal electrocardiogram [ECG] [EKG]; Z11.59 Encounter for screening for other viral diseases
CPT/HCPCS: 36415; 71045; 80053; 82948; 83690; 83880; 84484; 85025; 93005; 99284; G0378 ×2; U0002

== ENCOUNTER 2020-09-27 01:17 | Observation (INO) | payer MEDICARE, OTHER ==
[~2020-09-27] VITALS: Ht 188 cm; Wt 93.0 kg
[2020-09-27] MEDS ORDERED: ONDANSETRON HCL INJ 2MG/ML 2ML 2 MG/ML VIAL IV STA (01:22)
[2020-09-27] MEDS ORDERED: MECLIZINE HCL 12.5 MG TAB PO ONE (01:30)
[2020-09-27 01:35] LABS: BASOPHILS % 0.4 % (0.0-1.0); EOSINOPHILS # (AUTO) 0.3 (0.0-0.4); EOSINOPHILS % 4.1 % (0.0-6.0); HEMATOCRIT 29.9 % (38.2-49.6); HEMOGLOBIN 9.5 g/dL (14.0-18.0); LYMPHOCYTES # (AUTO) 1.3 (1.0-3.2); LYMPHOCYTES % 17.2 % (18.0-39.1); MEAN CORPUSCULAR HEMOGLOBIN 25.9 pg (28-32); MEAN CORPUSCULAR HGB CONC 31.8 g/dL (31-35); MEAN CORPUSCULAR VOLUME 81.5 fL (81-99); MONOCYTES % 13.1 % (4.4-11.3); NEUTROPHILS # (AUTO) 4.8 (2.1-6.9); NEUTROPHILS % 64.8 % (38.7-80.0); PLATELET COUNT 223 x10e3/uL (140-360); RED BLOOD COUNT 3.67 x10e6/uL (4.3-5.7); RED CELL DISTRIBUTION WIDTH 15.9 % (11.7-14.4)
[2020-09-27] MEDS ORDERED: MECLIZINE HCL 12.5 MG TAB ONE (01:40)
[2020-09-27 01:52] LABS: AMYLASE 68 U/L (25-125); LIPASE 36 U/L (8-78)
[2020-09-27 01:56] LABS: ALBUMIN 3.9 g/dL (3.5-5.0); ALBUMIN/GLOBULIN RATIO 1.3 (0.8-2.0); ANION GAP 15.5 mmol/L (8-16); CALCIUM 9.1 mg/dL (8.4-10.2); CREATININE, SERUM 1.24 mg/dL (0.72-1.25); POTASSIUM 3.5 mmol/L (3.5-5.1)
[2020-09-27] MEDS ORDERED: PROMETHAZINE 12.5MG/ NACL 0.9% 12.5 MG/50 ML BAG IV ONE (02:00)
[2020-09-27 02:02] LABS: CREATINE KINASE MB 3.7 ng/mL (0-5.0)
[2020-09-27] MEDS ORDERED: SODIUM CHLORIDE 0.9% 1000ML 1,000 ML IV ONE (03:45)
[2020-09-27] MEDS ORDERED: MECLIZINE HCL 12.5 MG TAB PO PRN (03:45)
[2020-09-27] MEDS ORDERED: PROMETHAZINE 12.5MG/ NACL 0.9% 12.5 MG/50 ML BAG IV PRN (03:45)
[2020-09-27] MEDS ORDERED: SERTRALINE HCL50 MG PO (04:21)
[2020-09-27 09:06] LABS: CREATINE KINASE MB 3.4 ng/mL (0-5.0)
[2020-09-27 13:08] VITALS: BP 158/77
== END 2020-09-27 13:08 | disposition left against medical advice (07) ==
LOC: ER 01:22 → ERHOLD 04:10
PROVIDERS: ADMIT Internal Medicine; ATTEND Internal Medicine
DX: R42 Dizziness and giddiness (principal); R11.2 Nausea with vomiting, unspecified; I10 Essential (primary) hypertension; I48.91 Unspecified atrial fibrillation; Z79.01 Long term (current) use of anticoagulants; E78.5 Hyperlipidemia, unspecified; Z85.46 Personal history of malignant neoplasm of prostate; Z20.822 Contact with and (suspected) exposure to COVID-19; N40.0 Benign prostatic hyperplasia without lower urinary tract symptoms
CPT/HCPCS: 36415; 70450; 80053; 82150; 82550; 82553; 83690; 84484; 85025; 93005; 99284; G0378; J2405; J2550; J8597; U0002

== ENCOUNTER → 2021-04-20 | Outpatient (CLI) | payer MEDICARE, OTHER ==
[~2021-04-20] MED LIST changes: +SERTRALINE HCL50 MG PO
== END ==
LOC: MRI 13:50
PROVIDERS: ATTEND Physical Medicine & Rehabilitation Pain Medicine
DX: M54.16 Radiculopathy, lumbar region (principal)
CPT/HCPCS: 72148

== ENCOUNTER → 2021-05-03 | Day surgery (SDC) | payer MEDICARE, OTHER ==
[2021-04-30 13:43] LABS: BASOPHILS % 0.5 % (0.0-1.0); EOSINOPHILS # (AUTO) 0.4 (0.0-0.4); EOSINOPHILS % 4.6 % (0.0-6.0); HEMATOCRIT 36.5 % (38.2-49.6); HEMOGLOBIN 11.2 g/dL (14.0-18.0); LYMPHOCYTES # (AUTO) 1.6 (1.0-3.2); LYMPHOCYTES % 19.3 % (18.0-39.1); MEAN CORPUSCULAR HEMOGLOBIN 27.8 pg (28-32); MEAN CORPUSCULAR HGB CONC 30.7 g/dL (31-35); MEAN CORPUSCULAR VOLUME 90.6 fL (81-99); MONOCYTES % 12.6 % (4.4-11.3); NEUTROPHILS # (AUTO) 5.2 (2.1-6.9); NEUTROPHILS % 62.8 % (38.7-80.0); PLATELET COUNT 225 x10e3/uL (140-360); RED BLOOD COUNT 4.03 x10e6/uL (4.3-5.7); RED CELL DISTRIBUTION WIDTH 15.2 % (11.7-14.4)
[~2021-05-03] MED LIST changes: +AMLODIPINE BESYL5 MG PO; +BUPIVACAINE 0.25% 30ML SDV ONE; +CENTRUM ADULTS1 EACH PO; +DEXAMETHASONE SOD PHOS 10 MG/1 ML VIAL ONE; +IOPAMIDOL 200 MG/ML 20 ML VIAL IT ONE; +LIDOCAINE HCL 1% 30ML-PF VIAL ONE; +METOPROLOL SUCC50 MG PO; +PLAVIX75 MG PO; +POVIDONE IODINE 0.05% 0.05 % ML PO ONE; +PROPOFOL IV EMULSION 10 MG/ML 20 ML VIAL ONE
[2021-05-03 07:00] VITALS: BP 112/47
== END | disposition home or self-care (01) ==
LOC: OR 07:09
PROVIDERS: ATTEND Physical Medicine & Rehabilitation Pain Medicine
DX: M54.16 Radiculopathy, lumbar region (principal); M47.896 Other spondylosis, lumbar region; M51.26 Other intervertebral disc displacement, lumbar region; R93.7 Abnormal findings on diagnostic imaging of other parts of musculoskeletal system; I25.10 Atherosclerotic heart disease of native coronary artery without angina pectoris; I10 Essential (primary) hypertension; R00.1 Bradycardia, unspecified; K50.90 Crohn's disease, unspecified, without complications; Z88.6 Allergy status to analgesic agent; Z01.810 Encounter for preprocedural cardiovascular examination; Z01.812 Encounter for preprocedural laboratory examination; Z20.822 Contact with and (suspected) exposure to COVID-19; Z79.02 Long term (current) use of antithrombotics/antiplatelets; Z79.82 Long term (current) use of aspirin; Z79.899 Other long term (current) drug therapy; Z95.5 Presence of coronary angioplasty implant and graft; Z92.3 Personal history of irradiation; Z85.46 Personal history of malignant neoplasm of prostate
CPT/HCPCS: 36415; 64483; 64484; 85025; 93005; J1100; J2001; J2704; Q9967; U0002; 77003

== ENCOUNTER 2021-08-30 06:03 | Observation (INO) | payer MEDICARE, OTHER ==
[2021-08-28 09:39] LABS: BASOPHILS % 0.6 % (0.0-1.0); EOSINOPHILS # (AUTO) 0.3 (0.0-0.4); EOSINOPHILS % 6.3 % (0.0-6.0); HEMATOCRIT 35.3 % (38.2-49.6); HEMOGLOBIN 11.2 g/dL (14.0-18.0); LYMPHOCYTES # (AUTO) 1.2 (1.0-3.2); LYMPHOCYTES % 23.2 % (18.0-39.1); MEAN CORPUSCULAR HEMOGLOBIN 27.9 pg (28-32); MEAN CORPUSCULAR HGB CONC 31.7 g/dL (31-35); MEAN CORPUSCULAR VOLUME 87.8 fL (81-99); MONOCYTES # (AUTO) 0.7 (0.2-0.8); MONOCYTES % 13.6 % (4.4-11.3); NEUTROPHILS # (AUTO) 2.9 (2.1-6.9); NEUTROPHILS % 56.1 % (38.7-80.0); PLATELET COUNT 210 x10e3/uL (140-360); RED BLOOD COUNT 4.02 x10e6/uL (4.3-5.7); RED CELL DISTRIBUTION WIDTH 16.1 % (11.7-14.4)
[2021-08-28 09:59] LABS: INR 0.86; PROTHROMBIN TIME 12.5 seconds (11.9-14.5)
[2021-08-28 10:00] LABS: PARTIAL THROMBOPLASTIN TIME 28.4 seconds (23.8-35.5)
[2021-08-28 10:04] LABS: ANION GAP 12.9 mmol/L (8-16); CALCIUM 8.9 mg/dL (8.4-10.2); CREATININE, SERUM 0.86 mg/dL (0.72-1.25); POTASSIUM 3.9 mmol/L (3.5-5.1)
[~2021-08-30] VITALS: Ht 188 cm; Wt 102.1 kg
[~2021-08-30 06:03] MED LIST changes: -BUPIVACAINE 0.25% 30ML SDV ONE; -DEXAMETHASONE SOD PHOS 10 MG/1 ML VIAL ONE; -IOPAMIDOL 200 MG/ML 20 ML VIAL IT ONE; -LIDOCAINE HCL 1% 30ML-PF VIAL ONE; -POVIDONE IODINE 0.05% 0.05 % ML PO ONE; -PROPOFOL IV EMULSION 10 MG/ML 20 ML VIAL ONE
[2021-08-30] MEDS ORDERED: Vancomycin IV 1 GM VIAL ONE (06:50)
[2021-08-30] MEDS ORDERED: LIDOCAINE 2% /EPINEPHRINE 20 ML SDV INJ ONE (06:50)
[2021-08-30] MEDS ORDERED: THROMBIN FOR SOLN 5,000 UNIT VIAL ONE (06:50)
[2021-08-30] MEDS ORDERED: HYDROCODON-ACE1 EA12 PO (09:55)
[2021-08-30] MEDS ORDERED: MORPHINE SULFATE 5 MG/ML VIAL IM PRN (10:00)
[2021-08-30] MEDS: LACTATED RINGER'S 1,000 ML IV SCH ×2 (10:00→16:50)
[2021-08-30] MEDS ORDERED: ZOLPIDEM TARTRATE 5 MG TAB PO PRN (10:00)
[2021-08-30] MEDS ORDERED: PROMETHAZINE HCL (IM) 25 MG/ML VIAL IM PRN (10:00)
[2021-08-30] MEDS ORDERED: CEPACOL SORE THROAT LOZENGES PO PRN (10:00)
[2021-08-30] MEDS ORDERED: CARISOPRODOL 350 MG TAB PO PRN (10:00)
[2021-08-30] MEDS ORDERED: HYDROMORPHONE 2MG/ML 2 MG/ML ML IV PRN (10:00)
[2021-08-30] MEDS ORDERED: ACETAMINOPHEN 325 MG TAB PO PRN (10:00)
[2021-08-30] MEDS ORDERED: MAGNESIUM/ALUMINUM/SIMETHICONE 30 ML UDC PO PRN (10:00)
[2021-08-30] MEDS ORDERED: ONDANSETRON HCL INJ 2MG/ML 2ML 2 MG/ML VIAL IV PRN (10:00)
[2021-08-30 11:44] VITALS: BP 157/61
[2021-08-30 11:45] VITALS: BP 157/61
[2021-08-30 11:47] VITALS: BP 157/61
[2021-08-30] MEDS: OXYCODONE/ACETAMINOPHEN 5-325 1 EACH TABLET PO PRN ×2 (12:39→18:41)
[2021-08-30] MEDS: CARVEDILOL 3.125 MG TAB PO SCH (16:35)
[2021-08-30] MEDS: METOPROLOL SUCCINATE 50 MG TAB XL PO SCH (16:36)
[2021-08-30] MEDS ORDERED: SEVOFLURANE INHAL SOLN 250 ML PEN BTL ONE (17:31)
[2021-08-30] MEDS ORDERED: ROCURONIUM BROMIDE 10 MG/ML 5ML VIAL IV ONE (17:31)
[2021-08-30] MEDS ORDERED: EPHEDRINE SULFATE INJ 50 MG/ML VIAL ONE (17:31)
[2021-08-30] MEDS ORDERED: LIDOCAINE HCL 2% LOCAL INJ 5 ML SDV VIAL INJ ONE (17:31)
[2021-08-30] MEDS ORDERED: PROPOFOL IV EMULSION 10 MG/ML 20 ML VIAL ONE (17:31)
[2021-08-30] MEDS ORDERED: DEXAMETHASONE SOD PHOS INJ 4 MG/ML SDV ONE (17:31)
[2021-08-30] MEDS ORDERED: NEOSTIGMINE 1 MG/ML 10ML VIAL ONE (17:31)
[2021-08-30] MEDS ORDERED: ONDANSETRON HCL INJ 2MG/ML 2ML 2 MG/ML VIAL ONE (17:31)
[2021-08-30] MEDS ORDERED: KETOROLAC TROMETHAMINE 30 MG/ML VIAL ONE (17:31)
[2021-08-30] MEDS ORDERED: ATROPINE SULFATE 1 MG/ML VIAL ONE (17:31)
[2021-08-30] MEDS ORDERED: POVIDONE IODINE 0.05% 0.05 % ML PO ONE (17:31)
[2021-08-30] MEDS ORDERED: FENTANYL CITRATE/PF 100MCG/2 ML INJ ONE (17:49)
[2021-08-30] MEDS ORDERED: MIDAZOLAM HCL 2 MG/2 ML VIAL ONE (17:49)
[2021-08-30 20:00] VITALS: BP 129/57
[2021-08-30] MEDS ORDERED: ATORVASTATIN 40 MG TAB PO SCH (21:00)
[2021-08-31] VITALS: BP 128/55
[2021-08-31 00:39] VITALS: BP 128/55
[2021-08-31] MEDS: LACTATED RINGER'S 1,000 ML IV SCH (03:30)
[2021-08-31 03:55] VITALS: BP 129/69
[2021-08-31] MEDS ORDERED: ALENDRONATE SODIUM 10 MG PO SCH (07:30)
[2021-08-31 08:40] VITALS: BP 140/77
[2021-08-31] MEDS ORDERED: SERTRALINE HCL 50 MG TAB PO SCH (09:00)
[2021-08-31] MEDS: OXYCODONE/ACETAMINOPHEN 5-325 1 EACH TABLET PO PRN (09:00)
[2021-08-31] MEDS: CARVEDILOL 3.125 MG TAB PO SCH (09:00)
[2021-08-31] MEDS ORDERED: AMLODIPINE BESYLATE 5 MG TAB PO SCH (09:00)
[2021-08-31] MEDS ORDERED: HYDROCHLOROTHIAZIDE 25 MG TAB PO SCH (09:00)
[2021-08-31] MEDS ORDERED: AMIODARONE HCL 200 MG TAB PO SCH (09:00)
[2021-08-31] MEDS ORDERED: MULTIVITAMINS/MINERALS TAB PO SCH (09:00)
[2021-08-31] MEDS ORDERED: PANTOPRAZOLE SOD 40 MG TABEC PO SCH (09:00)
[2021-08-31] MEDS ORDERED: VALSARTAN 160 MG TAB PO SCH (09:00)
[2021-08-31] MEDS: METOPROLOL SUCCINATE 50 MG TAB XL PO SCH (09:00)
[2021-08-31] MEDS ORDERED: NON-FORMULARY MEDICATION (Valsartan/Hydrochlorothiazide (Diovan Hct 320-25 Mg Tablet) 1 TA PO SCH (09:00)
[2021-08-31 09:02] VITALS: BP 140/77
[2021-08-31] MEDS ORDERED: COLESTIPOL HCL 1 G TAB PO SCH (10:00)
[2021-08-31] MEDS ORDERED: ONDANSETRON HCL 4 MG ORAL DISINTEGRATING TAB PO PRN (10:15)
== END 2021-08-31 10:35 | disposition home or self-care (01) ==
LOC: OR 06:03 → PACU V 09:59 → MED/SURG 11:20
PROVIDERS: ADMIT Neurological Surgery; ATTEND Neurological Surgery
DX: M48.062 Spinal stenosis, lumbar region with neurogenic claudication (principal); I48.91 Unspecified atrial fibrillation; I10 Essential (primary) hypertension; I25.10 Atherosclerotic heart disease of native coronary artery without angina pectoris; Z98.61 Coronary angioplasty status; Z85.46 Personal history of malignant neoplasm of prostate; Z01.810 Encounter for preprocedural cardiovascular examination; Z01.812 Encounter for preprocedural laboratory examination; Z01.818 Encounter for other preprocedural examination; Z20.822 Contact with and (suspected) exposure to COVID-19; Z88.5 Allergy status to narcotic agent
CPT/HCPCS: 36415; 63047; 63048; 71046; 72020; 80048; 85025; 85610; 85730; 86850; 86900; 88304; 88311; 93005; G0378 ×2; J0461; J0690 ×2; J1100; J1170; J1885; J2001 ×2; J2250; J2405; J2704; J2710; J3010; J3370; J7121 ×2; S0164; U0002

== ENCOUNTER → 2022-01-10 | Day surgery (SDC) | payer MEDICARE, OTHER ==
[2022-01-08 08:43] LABS: BASOPHILS % 0.6 % (0.0-1.0); EOSINOPHILS # (AUTO) 0.3 (0.0-0.4); EOSINOPHILS % 4.7 % (0.0-6.0); HEMATOCRIT 38.8 % (38.2-49.6); HEMOGLOBIN 12.8 g/dL (14.0-18.0); LYMPHOCYTES # (AUTO) 1.8 (1.0-3.2); LYMPHOCYTES % 24.8 % (18.0-39.1); MEAN CORPUSCULAR HEMOGLOBIN 31.6 pg (28-32); MEAN CORPUSCULAR VOLUME 95.8 fL (81-99); MONOCYTES # (AUTO) 0.8 (0.2-0.8); MONOCYTES % 11.1 % (4.4-11.3); NEUTROPHILS # (AUTO) 4.2 (2.1-6.9); NEUTROPHILS % 58.5 % (38.7-80.0); PLATELET COUNT 170 x10e3/uL (140-360); RED BLOOD COUNT 4.05 x10e6/uL (4.3-5.7)
[~2022-01-10] MED LIST changes: +BUPIVACAINE 0.25% 30ML SDV ONE; +DEXAMETHASONE SOD PHOS 10 MG/1 ML VIAL ONE; +HYDROCODON-ACE1 EA12 PO; +IOPAMIDOL 200 MG/ML 20 ML VIAL IT ONE; +LIDOCAINE HCL 1% 30ML-PF VIAL ONE; +LIDOCAINE HCL 2% LOCAL INJ 5 ML SDV VIAL INJ ONE; +POVIDONE IODINE 0.05% 0.05 % ML PO ONE; +PROPOFOL IV EMULSION 10 MG/ML 20 ML VIAL ONE
[2022-01-10 07:20] VITALS: BP 127/68
== END | disposition home or self-care (01) ==
LOC: OR 06:07
PROVIDERS: ATTEND Physical Medicine & Rehabilitation Pain Medicine
DX: M54.16 Radiculopathy, lumbar region (principal); M47.896 Other spondylosis, lumbar region; M51.26 Other intervertebral disc displacement, lumbar region; I25.10 Atherosclerotic heart disease of native coronary artery without angina pectoris; I10 Essential (primary) hypertension; I48.91 Unspecified atrial fibrillation; Z88.6 Allergy status to analgesic agent; Z01.810 Encounter for preprocedural cardiovascular examination; Z01.812 Encounter for preprocedural laboratory examination; Z20.822 Contact with and (suspected) exposure to COVID-19; Z79.02 Long term (current) use of antithrombotics/antiplatelets; Z79.82 Long term (current) use of aspirin; Z79.899 Other long term (current) drug therapy
CPT/HCPCS: 36415; 64483; 64484 ×2; 85025; 93005; J1100; J2001 ×2; J2704; Q9967; 77003

== ENCOUNTER → 2022-02-07 | Day surgery (SDC) | payer MEDICARE, OTHER ==
[~2022-02-07] MED LIST changes: -BUPIVACAINE 0.25% 30ML SDV ONE; -DEXAMETHASONE SOD PHOS 10 MG/1 ML VIAL ONE; -LIDOCAINE HCL 2% LOCAL INJ 5 ML SDV VIAL INJ ONE; +METHYLPREDNISOLONE ACETATE 80 MG/ML VIAL ONE; +MIDAZOLAM HCL 2 MG/2 ML VIAL ONE
[2022-02-07 08:30] VITALS: BP 149/73
== END | disposition home or self-care (01) ==
LOC: OR 06:00
PROVIDERS: ATTEND Physical Medicine & Rehabilitation Pain Medicine
DX: M51.16 Intervertebral disc disorders with radiculopathy, lumbar region (principal); M47.816 Spondylosis without myelopathy or radiculopathy, lumbar region; Z88.5 Allergy status to narcotic agent; I25.10 Atherosclerotic heart disease of native coronary artery without angina pectoris; I10 Essential (primary) hypertension; Z08 Encounter for follow-up examination after completed treatment for malignant neoplasm; Z85.46 Personal history of malignant neoplasm of prostate; K21.9 Gastro-esophageal reflux disease without esophagitis; Z95.5 Presence of coronary angioplasty implant and graft; K50.90 Crohn's disease, unspecified, without complications; Z96.652 Presence of left artificial knee joint; Z90.49 Acquired absence of other specified parts of digestive tract; R00.0 Tachycardia, unspecified
CPT/HCPCS: 62323; 77003; J1040; J2001; J2250; J2704; Q9967